=== PATIENT | male | born 1945 | race Caucasian/White ===

== ENCOUNTER 2020-01-18 06:38 | Day surgery (SDC) | payer OTHER, SELFPAY ==
[2019-12-17 14:53] VITALS: BMI 24.7
--- NOTE | 2020-01-17 13:03 | PCM.HP.BLA ---
History and Physical Date of Admission: 01/18/20 Raya Goff 06/27/1936 ? ? REFERRING PHYSICIAN: Shaan Arellano MD ? CHIEF COMPLAINT: Consult (Consult solonoscopy- anemia) ? HPI: The patient is a 83 year old female presents with complaint of abdominal pain, nausea, weight loss, and anemia. She is referred for consideration of endoscopy. She has had nausea and emesis. Denies hematemesis. Has decreased appetite and has lost about 12# over unknown period of time. This has been going on for about 8 months. Daughter notes that patient usually has good appetite, but lately does not for the past 8 months Notes occasional blood in stools. Has had a few episodes of abdominal pain - upper - that cuased her to double over due to pain She is presently on prevacid and has been for years. She thinks she had a colonoscopy about 5 years ago. She has a sister who had colon cancer in her 60s or 70s. The patient herself has a history of colon polyps in the remote past. She is presently on blood thinners for her cardiac stents. Her last hemoglobin was noted to be 9.7. She also had previous capsule endoscopy of small bowel 2014 - [place] ? ? PAST MEDICAL HISTORY ? Arrhythmia ? ? BENIGN NEOPLASM LG BOWEL 04/24/2007 ? Adenomatous polyp removed from Sigmoid in 1992 Colonoscopy 02-16-07 (sister with colon ca): left sided tics with no polyps or masses ? CHF (congestive heart failure) ([facility]) ? ? Chronic airway obstruction, not elsewhere classified ? ? CKD (chronic kidney disease) stage 3, GFR 30-59 ml/min ([facility]) 04/30/2017 ? Closed Colles' fracture of left radius 10/31/2016 ? Coronary artery disease ? ? Diverticulosis of colon (without mention of hemorrhage) ? ? DM Neuro Manif Type II 11/21/2009 ? Esophageal reflux 04/24/2007 ? Hallux valgus (acquired) 11/21/2009 ? MACULAR DEGENERATION NOS 07/28/2007 ? [facility] 06-24-07: L eye with MD s/p cataract extraction-stable [place] 08-14: L eye YAG capsulotomy after cataract extraction 07-27-07, 20/40 R, count fingers L ? Oropharyngeal dysphagia 05/17/2015 ? Honey thickened liquids. ? Osteopenia ? ? Osteopenia of multiple sites (Clinical osteoporosis) 11/12/2016 ? Other and unspecified hyperlipidemia ? ? Other psoriasis and similar disorders ? ? Psoriasis ? PAD (peripheral artery disease) (HCC) both lower extremities. 02/03/2018 ? Dr. Spencer Mccabe, Vascular Surgery ? Peripheral sensory neuropathy due to type 2 diabetes mellitus (HCC) 09/18/2015 ? Restless legs syndrome (RLS) 04/24/2007 ? Tobacco use disorder 03/30/2008 ? Quit tobacco about age 62: about a 30 pack year (started about 1970 and quit about 1999) UA negative for blood in 03-14, 11-12 ? Type II or unspecified type diabetes mellitus without mention of complication, not stated as uncontrolled ? ? Unspecified essential hypertension ? ? PAST SURGICAL HISTORY ? BX BREAST PERC VACUUM/ROTN ? 01/10/10 ? Left ? CC CORONARY STENT ? 04/10/2014 ? Stents x 2 ? CC CORONARY STENT ? 2003 ? Stent x 1 ? COLONOSCOP W/ OR W/O BRSH SPEC ? 05/10/2002 ? Colonoscopy ? COLONOSCOP W/ OR W/O BRSH SPEC ? 02/16/2007 ? Colonoscopy ? COLONOSCOP W/ OR W/O BRSH SPEC ? 07/30/2013 ? Colonoscopy ? COLONOSCOP W/ OR W/O BRSH SPEC ? 08/04/14 ? Colonoscopy ? COLONOSCOP W/ OR W/O BRSH SPEC ? 11/17/2014 ? Colonoscopy ? EGD W/O OR W/BRUSH/WASH ? 12/17/2000 ? EGD ? EGD W/O OR W/BRUSH/WASH ? 07[facility]01/14 [facility]ALLOPIAN [facility]UBE ? [facility] ? Tubal ligation ? REMOVAL GALLBLADDER ? 1983 ? Cholecystectomy ? REMOVAL OF TONSILS,<12 Y/O ? 194 ? Tonsillectomy ? REMV CATARACT EXTRACAP,INSERT LENS ? x 2 right and left ? Cataract Removal ? TOTAL ABDOM HYSTERECTOMY ? 1977 ? Hysterectomy, JUSTICE, BSO, appendectomy ? ? Current Outpatient Medications ? peg 3350-Electrolytes (GOLYTELY) 236-22.74-6.74 -5.86 gram suspension Take 4,000 mL by mouth one time only for 1 dose. Refer to printed prep instructions from your doctor. ? lisinopril (ZESTRIL, PRINIVIL) 10 mg tablet Take 1 tablet by mouth twice daily. (Patient taking differently: Take 10 mg by mouth once daily. ) ? guaiFENesin (MUCINEX) 600 mg 12 hr tablet Take 1 tablet by mouth twice daily. ? blood sugar diagnostic (DNsolution ULTRA TEST) test strip Test blood sugar twice daily Dx. Code: E11.40 ? atorvastatin (LIPITOR) 40 mg tablet Take 1 tablet by mouth once daily. ? cephALEXin (KEFLEX) 500 mg capsule Take 1 capsule by mouth twice daily. ? clopidogrel (PLAVIX) 75 mg tablet Take 1 tablet by mouth once daily. ? mometasone-formoterol (DULERA) 200-5 mcg/actuation inhaler Inhale 1 Puff as instructed twice daily. ? lansoprazole (PREVACID) 30 mg capsule Take 1 capsule by mouth once daily. ? amLODIPine (NORVASC) 5 mg tablet Take 1 tablet by mouth twice daily. ? albuterol HFA (VENTOLIN HFA) 90 mcg/actuation inhaler Inhale 2 Puffs as instructed four times daily as needed. ? ferrous sulfate 325 mg (65 mg iron) tablet Take 1 tablet by mouth daily with breakfast. ? tiotropium (SPIRIVA RESPIMAT) 2.5 mcg/actuation inhaler Inhale 2 Puffs as instructed once daily. ? sodium chloride (AYR, OCEAN) 0.65 % nasal spray Use 2 Sprays in the nose twice daily. ? metoprolol tartrate, short acting, (LOPRESSOR) 50 mg tablet Take 2 tablets by mouth twice daily. ? nitroglycerin sublingual (NITROSTAT) 0.4 mg SL tablet Dissolve 1 tablet under the tongue as needed. DISSOLVE ON TONGUE FOR CHEST PAIN. IF NO PAIN RELIEF, CALL 911 (Patient to call when needs) ? Compression Knee Highs KNEE HIGH COMPRESSION STOCKINGS 20-30 MM HG. DX: EDEMA ? Lancets lancets Test blood sugar(s) once times daily. Dx: E11.49 Insulin: No ? aspirin, enteric coated (ASPIRIN, ENTERIC COATED) 81 mg EC tablet Take 81 mg by mouth once daily. ? VIT C/OSWALDO AC/LUT/COPPER/ZNOX (PRESERVISION ORAL) Take by mouth twice daily. ? Vfaqoncxhrqek-Xhjrcrpr-Ffxerc (CENTRUM SILVER) ORAL Tab Take 1 tablet by mouth once daily. ? calcium carbonate/vitamin d3(CALCIUM 600 + D(3) 600 MG (1,500)-200 UNIT TAB) Take one(1) tablet twice daily. ? ? ALLERGIES: Aspirin; Iodine; Lyrica [Pregabalin]; Nabumetone; Proair Hfa [Albuterol Sulfate]; Tylenol [Acetaminophen] ? PERSONAL HISTORY: Social History ?Tobacco Use ? Smoking status: Former Smoker ? ? Packs/day: 1.30 ? ? Years: 45.00 ? ? Pack years: 58.50 ? ? Types: Cigarettes ? ? Start date: 07/07/1968 ? ? Last attempt to quit: 07/07/1999 ? ? Years since quittin.5 ? Smokeless tobacco: Never Used Substance Use Topics ? Alcohol use: No ? Drug use: No ? FAMILY HISTORY ? Emphysema Mother ? ? [place] ? Cancer Mother ? ? Lung ? Emphysema Father ? ? Alzheimer's Disease Sister ? ? Alzheimer's Disease Sister ? ? GI Sister ? ? pancreatitis ? Colon Cancer Sister ? ? Cancer Brother ? ? Lung in 2 brothers ? COPD Sister ? ? Emphysema ? Diabetes Son ? ? other (congestive heart failure) Son ? ? ? REVIEW OF SYSTEMS: General - complains of increased tiredness, denies fevers, has weight loss as above, has decreased appetite Cardiovascular - denies chest pain, has cardiac history with placement of stents Pulmonary - feels short of breath with exertion, denies coughing up blood Gastrointestinal - see HPI Neurological - denies seizures Genitourinary - denies burning with urination, denies blood in urine Hematological - has easy bruising, on antiplatelet medication Skin - bruises easily- has thin skin Musculoskeletal - has back pain Endocrine - has diabetes, feels cold all the time, no thyroid problems Psychological ? denies hallucinations ? PHYSICAL EXAMINATION: General: The patient is 83 year old female, well nourished, well hydrated in no acute distress. The patient is oriented to time, place, and person. VITALS: Pulse 75, temperature 37 ?C (98.6 ?F), temperature source Temporal Artery, weight 56.8 kg (125 lb 3.2 oz), SpO2 96 %. Body mass index is 25.29 kg/m?. Head ? Normocephalic. EOM intact with sclera clear and no icterus noted. Mouth with mucus membranes moist. Neck - supple with no jugular venous distention noted. Trachea is midline. Lungs ? clear to auscultation. Normal breath sounds. No rales/rhonchi/wheezing noted. No labored breathing noted, such as retractions. No cough heard. Heart ? normal heart sounds. No rubs/clicks/murmurs noted. Regular rate. Abdomen ? soft and benign. Normal bowel sounds. No abdominal bruits noted.. Extremities ? no calf tenderness noted. No pitting edema noted. Skin ? bruises noted, otherwise normal skin integrity. Neurological ? gait normal, no focal deficits noted. Psych ? calm and appropriate ? ? IMPRESSION: anemia, weight loss, abdominal pain, see above ? PLAN: I have discussed the above with the patient. She is here with her daughter. I have offered upper and lower endoscopy for evaluation of abdominal pain/anemia/weight loss, etc I have explained the procedures to the patient. I have counseled the patient as to the risks of the procedure, including but not limited to: infection, bleeding, perforation of the GI tract, injury to any intraabdominal organs such as the liver/spleen, inability to complete the procedure, complications of anesthesia, etc. ? the patient understands. The patient wishes to proceed. She states that she will not be able to drink the colon cleansing solution, I have told her that she can do a clear liquid diet over two days and divide the solution in half to take each of those days. She has CKD and a magcitrate prep that she had in the past may cause MINO. I have also counseled patient that given the present COVID crisis, she would be at risk for COVID and potential for complications given this procedure, though the risks are low. She understands and wishes to proceed. I have answered all questions to the patient?s satisfaction and the patient has no further questions. . Diagnoses: (D64.9) Anemia, unspecified type (primary encounter diagnosis) (R10.11, R10.12) Bilateral upper abdominal pain (K92.1) Hematochezia Return to Clinic: The patient is instructed to follow-up with me after the procedure. ? Danni Rocha MD
[2020-01-18] VITALS (7 sets, daily range): BP systolic 96–140; BP diastolic 62–77; PULSE 56–63; RESP 14–16; TEMP 36.2–36.6; O2SAT 97–100; BMI 23.5
--- NOTE | 2020-01-18 07:09 | PCM.HP.STD ---
Problem List (1) Personal history of colonic polyps Status: Acute History of Present Illness Date of Admission: 01/18/20 The patient is a 74 year old M who presents for an open access to pursue a colonoscopy as he has a personal history of colon polyps. His most recent colonoscopy was November 2014. Hyperplastic polyp was removed at that time. But he has had history of polyps prior to that as well. Denies abdominal pain. No bright red blood per rectum or melena. He has had an intentional 15 pound weight loss since he was diagnosed as being prediabetic. He otherwise enjoys a good quality of life Past Medical History Medical History: Medical History (Last Updated 12/17/19 @ 14:49 by Cam Kelley) Arthritis M19.90 Back problem M53.9 GERD (gastroesophageal reflux disease) K21.9 High cholesterol E78.00 High triglycerides E78.1 History of amputation of toe Z89.429 History of gout Z87.39 Joint pain M25.50 Joint swelling M25.40 Neuropathy G62.9 Tinnitus H93.19 cataracts Allergies No Known Allergies Allergy (Unverified 01/18/20 06:54) Home Medications: Ambulatory Orders Medication Instructions Recorded omeprazole magnesium 10 mg oral 20 mg PO DAILY 12/17/19 suspension,delayed release pravastatin 20 mg tablet 20 mg PO DAILY #90 tab 12/17/19 vit C,E,zinc,copper-irrhg6m 250 1 cap PO DAILY 12/17/19 mg-lutein 5 mg-zeaxanthin 1 mg capsule Gabapentin 600 mg PO 4X/DAY 01/05/20 [place]-3 Fatty Acids/Fish Oil [Fish 1 ea PO BID 01/05/20 Oil 1,000 mg Capsule] Ubidecarenone [Coq-10] 100 mg PO DAILY 01/05/20 Surgical History: Surgical History (Last Updated 12/17/19 @ 14:49 by Cam Kelley) History of back surgery Z98.890 History of hernia surgery Z98.890, Z87.19 Smoking Status: Never smoker Tobacco Use: Non-smoker Review of Systems Constitutional: Denies: Anorexia Cardiovascular: Denies: Chest Pain Respiratory: Denies: Cough, Shortness of Breath Gastrointestinal: Denies: Abdominal Pain, Melena Endocrine: Reports: Change in Body Habitus, - - Intentional 15 pound weight loss VTE Information - Inpt Only VTE Present on Admission: No Patient Problems: Active and Suspected Problems (Last Updated 12/17/19 @ 14:49 by Cam Kelley) Personal history of colonic polyps (Acute) - Physical Exam Vitals/I&O's: Vital Signs Temp Pulse Resp BP Pulse Ox 97.1 F L 63 14 140/77 H 100 01/18/20 06:55 01/18/20 06:55 01/18/20 06:55 01/18/20 06:55 01/18/20 06:55 Oxygen Delivery Method Room Air Weight: 166 lb 3.657 oz Body Mass Index (BMI) 23.5 General: Alert, Oriented x3, Cooperative, No apparent distress HEENT: Atraumatic Oral: Moist Mucosa Lungs: Clear to auscultation, Normal air movement Cardiovascular: Regular rate, Regular Rhythm Abdomen: Bowel Sounds Present, Soft, Non Tender Extremities: No Calf Tenderness Neurological: - - Cognition intact Psych/Mental Status: Normal Affect Assessment/Plan All Active Problems (Last Updated 12/17/19 @ 14:49 by Cam Kelley) Personal history of colonic polyps (Acute) 74-year-old gentleman with a personal history of colon polyps. He presents via open access. I propose for him a colonoscopy with possible biopsy or polypectomy is indicated. He has had an opportunity to ask and have questions answered. We will proceed as noted. Iftikhar Sanabria M.D., F.A.C.S.
[2020-01-18] MEDS: Lactated Ringers 1,000 ML 100 ML IV (07:17)
--- NOTE | 2020-01-18 07:42 | OP.CCLET_ITS ---
01/18/2020 Allyson Ambriz [facility] [address] [place] [address] Re : Colonoscopy procedure for Petey Sanford Dear Dr. Ambriz This procedure was performed on Saturday, January 18, 2020. My impressions and recommendations are as follows: Impressions : - Non-thrombosed external hemorrhoids, non-thrombosed internal hemorrhoids, internal hemorrhoids (Grade I) and enlarged prostate found on digital rectal exam. - Diverticulosis in the entire examined colon. - The examination was otherwise normal. - No specimens collected. Recommendations : - Discharge patient to home. - Resume previous diet. - Continue present medications. - Repeat colonoscopy is not recommended due to current age (66 years or older) for screening purposes. My findings are described in the full procedure note, which is enclosed. If I can be of further assistance, please feel free to contact me at Doctor phone number(s): Work: . Sincerely, Iftikhar Sanabria MD 01/18/2020 7:42:31 AM This report has been signed electronically.
--- NOTE | 2020-01-18 07:42 | OP.COLON_ITS ---
Patient Name: Petey Sanford Procedure Date: 01/18/2020 7:10 AM Date of : 1945 Age: 74 Procedure: Colonoscopy Indications: High risk colon cancer surveillance: Personal history of colonic polyps Providers: Iftikhar Sanabria MD Referring MD: Allyson Ambriz Medicines: See the Anesthesia note for documentation of the administered medications Patient Profile: Last Colonoscopy: November 2014. Complications: No immediate complications. Procedure: Pre-Anesthesia Assessment: - Prior to the procedure, a History and Physical was performed, and patient medications and allergies were reviewed. The patient's tolerance of previous anesthesia was also reviewed. The risks and benefits of the procedure and the sedation options and risks were discussed with the patient. All questions were answered, and informed consent was obtained. Prior Anticoagulants: The patient has taken no previous anticoagulant or antiplatelet agents. ASA Grade Assessment: II - A patient with mild systemic disease. After reviewing the risks and benefits, the patient was deemed in satisfactory condition to undergo the procedure. After I obtained informed consent, the scope was passed under direct vision. Throughout the procedure, the patient's blood pressure, pulse, and oxygen saturations were monitored continuously. The Colonoscope was introduced through the anus and advanced to the cecum, identified by appendiceal orifice and ileocecal valve. The colonoscopy was performed without difficulty. The patient tolerated the procedure well. The quality of the bowel preparation was good. The ileocecal valve and the appendiceal orifice were photographed. Scope In: 7:24:28 AM Scope Withdrawal Time 0 hours 7 minutes 1 second Scope Out: 7:37:36 AM Total Procedure Duration Time 0 hours 13 minutes 8 seconds Findings: The digital rectal exam findings include non-thrombosed external hemorrhoids, non-thrombosed internal hemorrhoids, internal hemorrhoids (Grade I) and enlarged prostate. Pertinent negatives include normal sphincter tone. Multiple diverticula were found in the entire colon. The exam was otherwise without abnormality. Impression: - Non-thrombosed external hemorrhoids, non-thrombosed internal hemorrhoids, internal hemorrhoids (Grade I) and enlarged prostate found on digital rectal exam. - Diverticulosis in the entire examined colon. - The examination was otherwise normal. - No specimens collected. Recommendation: - Discharge patient to home. - Resume previous diet. - Continue present medications. - Repeat colonoscopy is not recommended due to current age (66 years or older) for screening purposes. Procedure Code(s): --- Professional --- 78250, Colonoscopy, flexible; diagnostic, including collection of specimen(s) by brushing or washing, when performed (separate procedure) Diagnosis Code(s): --- Professional --- Z86.010, Personal history of colonic polyps K64.0, First degree hemorrhoids K64.4, Residual hemorrhoidal skin tags N40.0, Benign prostatic hyperplasia without lower urinary tract symptoms K57.30, Diverticulosis of large intestine without perforation or abscess without bleeding CPT copyright 2017 [employer]. All rights reserved. The codes documented in this report are preliminary and upon entry operator review may be revised to meet current compliance requirements. Iftikhar Sanabria MD 01/18/2020 7:42:31 AM This report has been signed electronically. Number of Addenda: 0 Note Initiated On: 01/18/2020 7:10 AM
== END 2020-01-18 08:22 | disposition home or self-care (01) ==
LOC: EN 06:39 → AC 06:41
PROVIDERS: Anesthesiology; PCP Internal Medicine; Referring Provider Internal Medicine; Visit Provider Surgery
PROC: 0DJD8ZZ Inspection of Lower Intestinal Tract, Via Natural or Artificial Opening Endoscopic (ICD-10-PCS; CPT 45378; principal; 2020-01-18 07:40)
DX: Z12.11 Encounter for screening for malignant neoplasm of colon (principal); K57.30 Diverticulosis of large intestine without perforation or abscess without bleeding; K64.0 First degree hemorrhoids; N40.0 Benign prostatic hyperplasia without lower urinary tract symptoms; Z87.19 Personal history of other diseases of the digestive system; M19.90 Unspecified osteoarthritis, unspecified site; K21.9 Gastro-esophageal reflux disease without esophagitis; E78.00 Pure hypercholesterolemia, unspecified; Z11.59 Encounter for screening for other viral diseases; Z79.899 Other long term (current) drug therapy
CPT/HCPCS: 45378; 87635; G2023; J7120; J2405; U0003

== ENCOUNTER 2021-09-04 09:00 | Outpatient (CLI) | payer OTHER, SELFPAY ==
[2021-09-04 12:24] LABS: Absolute Neutrophil Count 2.4 X10^3/uL (2.0-7.7); Basophil# 0.04 X10^3/uL; Basophil% 0.9 % (0-1); Eosinophil# 0.17 X10^3/uL; Eosinophils% 3.7 % (0-5); Hematocrit 46.9 % (40-54); Hemoglobin 16.4 g/dL (13.0-16.5); Lymphocyte % 32.4 % (19-41); Mean Corpuscular Hgb 30.7 pg (27.0-32.0); Mean Corpuscular Volume 87.8 fL (80-94); Mean Platelet Vol. 11.9 fl (6.2-12.0); Monocyte# 0.47 X10^3/uL; Monocyte% 10.2 % (0-10); NRBC Flagged by Analyzer 0 % (0-5); Neutrophil # 2.44 X10^3/uL (2.7-7.7); Neutrophil % 52.6 % (47-70); Platelet Count 165 K/mm3 (150-450); RBC Distribution Width CV 13.1 % (11.6-14.6); RBC Distribution Width SD 41.6 fl (35.1-43.9); Red Blood Count 5.34 M/mm3 (4.6-6.2); White Blood Count 4.6 K/mm3 (4.4-11.0)
[2021-09-04 12:49] LABS: Vitamin D,25 Hydroxy 88.9 ng/mL
[2021-09-04 13:16] LABS: ALB/GLOB Ratio 0.9 RATIO (0.9-2.4); AST(SGOT) 23 U/L (15-37); Alanine Aminotransfer ALT/SGPT 31 U/L (16-61); Albumin, Serum 3.7 g/dL (3.2-5.0); Alkaline Phosphatase 100 U/L (45-117); Anion Gap 5 (5-15); BUN 18 mg/dL (7-18); BUN/Creat Ratio 17.6 RATIO (10-20); Calcium,Total 8.8 mg/dL (8.5-10.1); Chloride 104 mmol/L (98-107); Cholesterol 155 mg/dL (200); Creatinine, Serum 1.02 mg/dL (0.70-1.30); EST Glomerular Filtration Rate 75 mL/min (>60); Est Glom Filt Rate - Afr Amer 91 mL/min (>60); Globulin 3.9 g/dL (2.2-4.2); Glucose 125 mg/dL (74-106); High Density Lipoprotein 45 mg/dL; PSA,Total - Annual Screen 3.59 ng/mL (0.00-4.00); Potassium 4.6 mmol/L (3.5-5.1); Protein, Total 7.6 g/dL (6.4-8.2); Sodium Level 139 mmol/L (136-145); Triglycerides 135 mg/dL; Very Low Density Lipoprotein 27 mg/dL (5-40)
== END 2021-09-04 23:59 | disposition home or self-care (01) ==
LOC: BIMLAB 09:01
PROVIDERS: PCP Internal Medicine; Referring Provider Internal Medicine; Visit Provider Internal Medicine
DX: M19.90 Unspecified osteoarthritis, unspecified site (principal); K21.9 Gastro-esophageal reflux disease without esophagitis; G62.9 Polyneuropathy, unspecified; M54.9 Dorsalgia, unspecified; G89.29 Other chronic pain; Z12.5 Encounter for screening for malignant neoplasm of prostate
CPT/HCPCS: 36415; 80053; 80061; 82306; 84153; 85025; G0103

== ENCOUNTER → 2022-05-01 | Outpatient (CLI) | payer MEDICARE, SELFPAY ==
--- NOTE | 2022-05-01 14:09 | RAD_ITS ---
"EXAM: XR BILATERAL HIPS WITH PELVIS WHEN PERFORMED, 4 OR MORE VIEWS CLINICAL INDICATION: Osmani hip pain, left acute on chronic TECHNIQUE: Four or more views of the bilateral hips with pelvis when performed. This report was created using Traveler | VIP report HomeLight technology. COMPARISON: None. FINDINGS: BONES/JOINTS: Moderate joint space narrowing and marginal osteophytes left hip. Prominent bump along the superolateral aspect of the left femoral head neck junction. Mild joint space narrowing white hip with mild bump along the superolateral aspect of the right femoral head neck junction. Postoperative changes in the lumbosacral spine with laminectomy and posterior archana and pedicle screw stabilization. No displaced fracture. No destructive or sclerotic lesions. Note that overlapping bowel shadows may however obscure fine detail. Sacroiliac joint is unremarkable. No widening of the pubic symphysis. SOFT TISSUES: Unremarkable. No soft tissue swelling or gas. RAD/Hips B/L min 2 views w/ Pelvis IMPRESSION: 1. Moderate degenerative changes left hip associated with cam type femoral acetabular impingement. 2. Mild degenerative changes right hip associated with cam type femoral acetabular impingement. Electronically Signed: Rogelio Patricio MD at 6:11 EDT , "
--- NOTE | 2022-05-01 14:09 | RAD_ITS ---
EXAM: XR LEFT SHOULDER COMPLETE, 2 OR MORE VIEWS CLINICAL INDICATION: Left shoulder pain, arthritis shoulder TECHNIQUE: Two or more views of the left shoulder. This report was created using Toppr report generation technology. COMPARISON: None. FINDINGS: BONES/JOINTS: Unremarkable. No acute fracture. No subluxation. Normal alignment. Preservation of the joint space. No sclerotic or destructive changes observed. SOFT TISSUES: Unremarkable. No soft tissue swelling or gas. No radiopaque foreign body. RAD/Shoulder min 2 Views IMPRESSION: Negative left shoulder x-rays. Electronically Signed: Rogelio Patricio MD at 6:09 EDT ,
== END | disposition home or self-care (01) ==
PROVIDERS: PCP Internal Medicine; Referring Provider Internal Medicine; Visit Provider Internal Medicine
DX: M25.551 Pain in right hip (principal); M25.552 Pain in left hip; M25.512 Pain in left shoulder
CPT/HCPCS: 73030; 73521

== ENCOUNTER → 2022-06-13 | Outpatient (CLI) | payer MEDICARE, SELFPAY ==
[2022-06-13 12:08] LABS: Absolute Lymphocyte Count 1.68 X10^3/uL (0.83-4.51); Absolute Neutrophil Count 3.7 X10^3/uL (2.0-7.7); Basophil# 0.05 X10^3/uL; Basophil% 0.8 % (0-1); Eosinophil# 0.15 X10^3/uL; Eosinophils% 2.4 % (0-5); Hematocrit 46.9 % (40-54); Hemoglobin 15.9 g/dL (13.0-16.5); Lymphocyte # 1.68 X10^3/ul (0.83-4.51); Lymphocyte % 26.5 % (19-41); Mean Corp Hgb Conc 33.9 g/dL (32-36); Mean Corpuscular Hgb 29.7 pg (27.0-32.0); Mean Corpuscular Volume 87.5 fL (80-94); Mean Platelet Vol. 11.5 fl (6.2-12.0); Monocyte# 0.77 X10^3/uL; Monocyte% 12.2 % (0-10); NRBC Flagged by Analyzer 0 % (0-5); Neutrophil # 3.66 X10^3/uL (2.7-7.7); Neutrophil % 57.8 % (47-70); Platelet Count 179 K/mm3 (150-450); RBC Distribution Width CV 12.9 % (11.6-14.6); RBC Distribution Width SD 41.3 fl (35.1-43.9); Red Blood Count 5.36 M/mm3 (4.6-6.2); White Blood Count 6.3 K/mm3 (4.4-11.0)
[2022-06-13 12:27] LABS: Vitamin D,25 Hydroxy 82.3 ng/mL
[2022-06-13 12:40] LABS: ALB/GLOB Ratio 1.1 RATIO (0.9-2.4); AST(SGOT) 22 U/L (15-37); Alanine Aminotransfer ALT/SGPT 33 U/L (16-61); Albumin, Serum 3.7 g/dL (3.2-5.0); Alkaline Phosphatase 104 U/L (45-117); Anion Gap 6 (5-15); BUN 18 mg/dL (7-18); BUN/Creat Ratio 17.1 RATIO (10-20); Calcium,Total 9.3 mg/dL (8.5-10.1); Chloride 102 mmol/L (98-107); Cholesterol 184 mg/dL (200); Creatinine, Serum 1.05 mg/dL (0.70-1.30); EST Glomerular Filtration Rate 73 mL/min (>60); Est Glom Filt Rate - Afr Amer 88 mL/min (>60); Globulin 3.5 g/dL (2.2-4.2); Glucose 142 mg/dL (74-106); High Density Lipoprotein 47 mg/dL; Potassium 4.6 mmol/L (3.5-5.1); Protein, Total 7.2 g/dL (6.4-8.2); Sodium Level 138 mmol/L (136-145); Thyroid Stim Hormone (TSH) 2.24 uIU/mL (0.358-3.74); Triglycerides 207 mg/dL; Very Low Density Lipoprotein 41 mg/dL (5-40)
== END | disposition home or self-care (01) ==
LOC: BIMLAB 10:35
PROVIDERS: PCP Internal Medicine; Referring Provider Internal Medicine; Visit Provider Internal Medicine
DX: K21.9 Gastro-esophageal reflux disease without esophagitis (principal); M54.50 Low back pain, unspecified; G89.29 Other chronic pain; M19.90 Unspecified osteoarthritis, unspecified site; E78.00 Pure hypercholesterolemia, unspecified; M25.50 Pain in unspecified joint; E55.9 Vitamin D deficiency, unspecified
CPT/HCPCS: 36415; 80053; 80061; 82306; 84443; 85025

== ENCOUNTER → 2022-06-19 | Outpatient (CLI) | payer MEDICARE, SELFPAY ==
--- NOTE | 2022-06-19 15:02 | CT_ITS ---
EXAM: CT LEFT LOWER EXTREMITY WITHOUT INTRAVENOUS CONTRAST CLINICAL INDICATION: templating for left MANFRED TECHNIQUE: Helically acquired images were obtained of the left lower extremity without intravenous contrast. 2-D reformats were performed by the technologist. CTDIvol = ( 13.06 ) mGy, DLP = ( 832.54 ) mGycm This CT exam was performed using one or more of the following dose reduction techniques: automated exposure control, adjustment of the mA and/or kV according to patient size, and/or use of iterative reconstruction technique. This report was created using Rypos report Notifo technology. COMPARISON: None. FINDINGS: BONES/JOINTS: Moderate osteoarthrosis involving the right hip joint with severe osteoarthrosis of the left hip joint. No acute or healing fracture or malalignment. Posterior decompression of the lumbosacral spine with posterior osteometallic fusion. No hardware complications. No sclerotic or destructive changes. SOFT TISSUES: Unremarkable. No soft tissue swelling or gas. No radiopaque foreign body. OTHER FINDINGS: Colonic diverticulosis without diverticulitis. CT/Extremity Lower without Contra IMPRESSION: 1. Study performed for preoperative planning purposes. 2. End-stage osteoarthrosis of the left hip joint. Electronically Signed: Ryder Mart MD at 3:50 EST ,
== END | disposition home or self-care (01) ==
LOC: CT 15:00
PROVIDERS: PCP Internal Medicine; Referring Provider Orthopaedic Surgery; Visit Provider Orthopaedic Surgery
DX: M16.12 Unilateral primary osteoarthritis, left hip (principal)
CPT/HCPCS: 73700

== ENCOUNTER → 2022-06-25 | Outpatient (CLI) | payer MEDICARE, SELFPAY ==
[2022-06-26 12:05] LABS: Prothrombin Time (Protime)PT. 12.7 SECONDS (11.7-14.9)
[2022-06-26 12:06] LABS: Partial Thromboplast Time 29.2 Seconds (24.1-36.2)
[2022-06-26 12:14] LABS: Magnesium 2.2 mg/dL (1.6-2.6)
[2022-06-26 14:49] LABS: Hemoglobin A1c 6.6 % (3.8-5.6)
[2022-06-27 16:31] LABS: Fructosamine 333 umol/L (0-285)
== END | disposition home or self-care (01) ==
LOC: PAT 07-16 16:49
PROVIDERS: Anesthesiology; PCP Internal Medicine; Referring Provider Orthopaedic Surgery; Visit Provider Orthopaedic Surgery
DX: Z01.818 Encounter for other preprocedural examination (principal)
CPT/HCPCS: 36415; 82985; 83036; 83735; 85610; 85730; 86850; 86900; 86901; 87081

== ENCOUNTER → 2022-07-25 | Outpatient (CLI) | payer MEDICARE, SELFPAY ==
[2022-07-25 12:40] LABS: Anion Gap 6 (5-15); BUN 19 mg/dL (7-18); BUN/Creat Ratio 19.7 RATIO (10-20); Calcium,Total 9.4 mg/dL (8.5-10.1); Chloride 104 mmol/L (98-107); Creatinine, Serum 0.96 mg/dL (0.70-1.30); EST Glomerular Filtration Rate 80 mL/min (>60); Est Glom Filt Rate - Afr Amer 97 mL/min (>60); Glucose 131 mg/dL (74-106); Potassium 4.1 mmol/L (3.5-5.1); Sodium Level 138 mmol/L (136-145)
[2022-07-26 13:06] LABS: Fructosamine 277 umol/L (0-285)
== END | disposition home or self-care (01) ==
LOC: BIMLAB 09:57
PROVIDERS: PCP Internal Medicine; Visit Provider Internal Medicine
DX: R73.9 Hyperglycemia, unspecified (principal)
CPT/HCPCS: 36415; 80048; 82985; 83036

== ENCOUNTER 2022-08-13 14:05 | Observation (INO) | payer MEDICARE, SELFPAY ==
[2022-08-05 10:35] LABS: Hemoglobin A1c 6.1 % (3.8-5.6)
[2022-08-05 10:37] LABS: Prothrombin Time (Protime)PT. 12.5 SECONDS (11.7-14.9)
[2022-08-05 10:38] LABS: Partial Thromboplast Time 32.2 Seconds (24.1-36.2)
[2022-08-05 12:49] LABS: Magnesium 2.1 mg/dL (1.6-2.6)
[2022-08-06 20:37] LABS: Fructosamine 288 umol/L (0-285)
[2022-08-13] VITALS (16 sets, daily range): BP systolic 110–140; BP diastolic 52–78; PULSE 46–65; RESP 15–47; TEMP 35.3–36.6; O2SAT 93–100; BMI 24.5
--- NOTE | 2022-08-13 | HIP_PTH ---
PATIENT: FAUSTINO WEST LOC: MS3 U#:[id number] AGE/SX: 76/M ROOM: [facility] RE08/13/[address]: Dr. Anthony Hoover DO : 1945 BED: 1 DIS: 08/15/2022 SPEC #: [id number] RECD: 08/13/22 14:00 STATUS: CHET RESergio #: [id number] SENIA: 08/13/22 00:[address]: Anthony Hoover DEPT: SURGICAL PATHOLOGY RECD BY: Rodolfo Delgado ENTERED: 08/14/22 08:55 SP TYPE: TOTAL HIP OTHR DR: MD Dr. Angie Rich MD Tissues: Hip, NOS Procedures: Decalcification bone/plaque Surgery Specimen Level IV Comments: @ Specimen number changed from [id number] to [id number] @ on 08/14/22 at 0857 by MAINOR. HEADER OPERATION: ERAS, total hip replacement robotic arm assist PRE-OP DIAGNOSIS: Osteoarthritis of left hip TISSUE SUBMITTED: Bone and soft tissue from left hip MICROSCOPIC DIAGNOSIS Bone and tissue of left hip, total hip resection: Severe degenerative joint disease. AM:chu 08/19/2022 MICROSCOPIC DESCRIPTION Slides are reviewed. GROSS DESCRIPTION Received is one container labeled with the patient's name and designated bone and soft tissue hip, left. The specimen consists of a sahu femoral head with portion of femoral neck. The femoral head measures 5.5 x 5.5 x 5 cm and the femoral neck measures 1.5 cm in length. The articular surface displays prominent osteophyte formation, eburnation and bone erosion. Also present in the specimen container are multiple irregular fragments of bone reamings and pink-yellow soft tissue measuring in aggregate 8 x 9 x 3 cm. Putty Tinter Maker sections are submitted in two cassettes as follows: 1 - soft tissue, 2 - bone after decalcification. / SJ:chu 08/14/2022 TC:5 CPT: 92082, 54466
[2022-08-13] MEDS: Acetaminophen 500 MG Tablet 1000 MG PO ×2 (10:05→21:46)
[2022-08-13] MEDS: Celecoxib 200 MG Capsule 400 MG PO (10:06)
[2022-08-13] MEDS: Scopolamine 1mg/72hr Patch 1 PATCH TD (10:06)
[2022-08-13] MEDS: Magnesium 1 GM over 15 mins IV (10:34)
--- NOTE | 2022-08-13 10:38 | PCM.HP.BLA ---
History and Physical Date of Admission: 08/13/22 [facility] [id number] [place] [address] OFFICE VISIT Date of Service:? 08/05/22 MR#: [id number] Acct: [id number] Name:FAUSTINO ROMEO Rep #: [id number] : 1945 ? ? Provider: Dr. Anthony Hoover, DO Age/Sex:? 76/M ? ? Location: [facility] Status: Signed Intake Vital Signs ? 05/06/2210:18 Height 5 ft 10 in Intake Visit Reasons:?left hip Chief Complaint: left hip pain User Support Analyst Supervisor Required: No Accompanied by: Is patient in pain?: Yes (left hip and lower back) Pain scale (1-10): 4 Allergies No Known Allergies Allergy (Verified 08/05/22 08:56) Medications omeprazole magnesium 10 mg oral suspension,delayed release (Prilosec) 20 mg PO DAILY 12/17/19 [History Confirmed 08/05/22] vit C,E,zinc,copper-yisxy9g 250 mg-lutein 5 mg-zeaxanthin 1 mg capsule (Ocuvite Adult 50 Plus) 1 cap PO DAILY 12/17/19 [History Confirmed 08/05/22] coenzyme Q10 100 mg capsule 100 mg PO DAILY 01/05/20 [History Confirmed 08/05/22] cholecalciferol (vitamin D3) 125 mcg (5,000 unit) capsule 125 mcg PO DAILY 09/11/21 [History Confirmed 08/05/22] zinc gluconate 30 mg tablet 30 mg PO DAILY 09/11/21 [History Confirmed 08/05/22] pravastatin 20 mg tablet 20 mg PO DAILY #90 tabs 09/18/21 [Rx Confirmed 08/05/22] gabapentin 600 mg tablet 600 mg PO TID 05/01/22 [History Confirmed 08/05/22] metformin 500 mg tablet 500 mg PO BID #60 tabs 07/03/22 [Rx Confirmed 08/05/22] PFSH Medical History? Arthritis Back pain Back problem Cancer cataracts Diabetes Gastric reflux High cholesterol High triglycerides History of amputation of toe History of gout History of pain when walking History of ulceration Joint pain Joint swelling Leg cramps Neuropathy Non-smoker Restless legs Syncope Tinnitus Wears glasses Wears hearing aid Surgical History? History of back surgery History of hernia surgery Hx of colonoscopy Hx of esophagogastroduodenoscopy skin cancer removal Family History? Other Cancer Diabetes Heart disease Social History? Smoking Status:? Never smoker alcohol intake:? never HPI left hip Details: Parts of this documentation were recorded by a scribe, this documentation accurately reflects the service provided and the decisions made by me, Dr. Anthony Hoover, DO 08/05/22 0752. FAUSTINO SANFORD is a 76 year old M here today for? left hip pain. symptoms unchanged. ? surgery rescheduled for left hip arthroplasty scheduled in one week 08/13/2022 as he has had dietary adjustments and has not been able to get his fructosamine into the appropriate range. Ortho Exam General General: Yes no acute distress Neurologic: Yes alert and Yes oriented x3 Psychologic: Yes reasonable and appropriate Left Hip Skin/Wound: No Ecchymosis, No soft tissue swelling and No Erythema Hip: Absent eccymosis, soft tissue swelling, erythema or tender to palpate - internal rotation @90 degree flexion: 10 degrees external rotation @90 degree extension: 30 degrees HIP: Upon inspection of the left hip there is no evidence erythema, ecchymosis, open wounds or swelling.? No signs of infection.? Limited active range of motion of the hip as noted above.? Hip active range of motion does produce the groin pain.? Soft compartments. Supplemental Info 05/01/2022 x-ray left hip: Moderate to advanced left hip arthrosis there is instrumentation noted in the lower lumbar spine. Coding Level of Care Code Off vis,est,level 3 Diagnoses Osteoarthritis of left hip? M16.12 Assessment and Plan Assessment and Plan (1) Osteoarthritis of left hip: ?Status:?Acute Plan Mr. Sanford has lowered his fructosamine with dietary adjustments and he wishes to proceed with surgery for left MANFRED.? We did have a cancellation and were able to get him on sooner tentative surgery date August 13, 2021.? risks, benefits and alternatives of surgery reviewed including but not limited to bleeding, infection, nerve, foot drop, artery and/or tissue damage, fracture, VTE, leg length discrepancy, dislocation, need for hip precautions, continued pain and expected post-operative course.?Reviewed the pre-operative plans with the patient. Risks and benefits of the procedure were fully explained, including but not limited to infection, neurovascular injury, continued pain, arthritis, stiffness, need for further surgery, re-injury, DVT, PE, general risks of anesthesia, and loss of limb or life. The patient understands all the risks and does wish to proceed with written consent for left total hip arthroplasty. He will need to be able to get up 3 stairs at home prior to returning home. Edcuated that we will keep the patient overnight for observation and if all is well go home the next day. No NSAIDs for 7 days prior to surgery.? Continue with dietary diabetic plan. Follow up 2 weeks post op or sooner if pain, swelling, numbness or associated symptoms, or concerns develop.? All questions answered. Patient in agreement of plan. I will forward a copy to Dr. Kang 08/05/22 0923 <Electronically signed by Anthony Hoover DO> Date Anthony Hoover DO Cosigner Signature: Date (if applicable) ? CC:? Dr. Allyson Ambriz MD ~ I have examined the patient and the H&P has been reviewed. There are no clinical changes since date of exam.
[2022-08-13 11:10] LABS: Bedside Glucose 122 mg/dL (74-106)
[2022-08-13] MEDS: Cefazolin 2 GM in 0.9% Normal Saline 100 ML IV (11:17)
[2022-08-13] MEDS: Lactated Ringers 1,000 ML 125 ML IV (12:00)
--- NOTE | 2022-08-13 14:06 | PCM.OP.BLANK ---
Operative Report Date of Procedure: 08/13/22 Preoperative diagnosis: Left hip DJD Postoperative diagnosis: Same Procedure: CT-guided Makoplasty assisted left total hip arthroplasty Implants: [place] Accolade II stem size 4, 132 degree neck angle +5 neck length 56 mm Trident II acetabular shell with 40 mm cancellous screw 36mm ceramic head, 10 degree Trident X3 polyethylene insert. Anesthesia: Spinal EBL: 175 cc Complications: None Condition: Stable to PACU Indication for procedure: This is a 76-year-old male who has had long-standing arthrosis of the hip who has failed conservative treatment and wished to undergo total hip arthroplasty. We did discuss operative versus nonoperative intervention including risks of bleeding, infection , nerve artery tissue damage, need for further surgery, fracture, leg length discrepancy dislocation blood clot and need for postoperative physical therapy and postoperative expectations. An informed consent was signed. Procedure: Patient was met in the preoperative holding area once again the operative extremity was identified by both patient and physician and was marked. Patient was met by anesthesia . Anesthesia was started. patient was then positioned in the lateral decubitus position on a well-padded pegboard with an axillary roll. All bony prominences were checked and padded. The patient was prepped and draped in the usual sterile fashion. A timeout was called to ensure the proper patient procedure and extremity were being contemplated. Anatomic landmarks were palpated and marked for a standard posterior lateral approach. Prior to this the ASIS was palpated and 3 fingerbreadths proximal to this 3 pins were placed at a 45 degree angle into the iliac crest with good purchase, stab incisions were made with a 15 blade into the skin prior to placement. The Makoplasty array was then secured. A 10 blade scalpel was used to make a posterior incision through the skin and subcutaneous tissue. retractors were used and electrocautery was used to maintain meticulous hemostasis and dissect full-thickness flaps until the gluteal fascia was reached. The gluteal fascia was incised in line with the gluteal fibers. The bursal tissue was then freed from the underside and a Charnley retractor was placed. The femoral trochanteric checkpoint was placed and leg length was assessed using the trochanteric checkpoint and an EKG lead that was placed on the knee prior to prepping the leg .the fat pad was then elevated off of the external rotators with electrocautery and the external rotators were dissected off of the greater trochanter including the piriformis and were tagged with #1 Ethibond for later repair. The joint capsule opened with posterior trapdoor technique. The hip was surgically dislocated. The measurement on the preoperative CT from the top of the lesser trochanter to the femoral neck cut was marked Hohmann was placed around the lesser trochanter. A neck cutting guide was used to beto the neck with a Bovie and an oscillating saw was used complete the femoral neck cut. The femoral head was then removed and sized. We then turned our attention to the acetabulum. A Bovie was used to make a perforation in the anterior joint capsule and a Jean retractor was placed this was repeated in the 6 o'clock position and a wide bertha was placed there. With a long handled knife the labral and pulvinar tissue were removed. We then registered the acetabulum with the pointing array and confirmed our landmarks. Once the socket was thoroughly prepared and labral tissue and pulvinar was removed we single reamed with the robotic arm. We then used the robotic arm to position the acetabular implant and impacted it into place under robotic guidance. We then proceeded to place a posterior superior screw by drilling first measuring and inserting the screw. We then inserted a trial liner. And turned our attention back to the femur at this point a femoral elevator was used. As well as a pointed wide Hohmann around the lesser trochanter and a Hohmann to help retract the gluteus medius. A box chisel was used to remove excess lateral neck followed by a canal finder and a lateralizing reamer. This was followed by sequential broaches. Attention was made of the version within the canal based on preoperative templating. Once the final broach was seated we then trialed reduced the hip it was determined that a 132 degree neck angle with a +5 neck length was the appropriate size. We then checked stability with shuck testing as well as flexion and internal rotation. then proceeded with hip extension and checked leg lengths at the knees and heels as well as with the trochanteric checkpoint and knee EKG lead. At this point trials were removed. A liner was inserted to the cup. The femoral stem was inserted. We re-trialed and then proceeded to impact the femoral head onto the Alan taper. We then surgically reduce the hip check stability again and leg lengths and were satisfied. Betadine rinse was allowed to sit for 5 minutes while everyone changed their gloves. Thorough irrigation was performed. Followed by closure of the external rotators with #2 FiberWire followed by closure of gluteal fascia with #1 Ethibond. 0 Vicryl fat stitches and 2-0 Vicryl subcutaneous stitches and robert in the skin. [place] were placed in the skin pin sites over the iliac crest and dressed with a Mepilex dressing. The main incision was dressed with a Mepilex ag dressing and an abduction pillow was placed. Patient tolerated the procedure well there was no intraoperative complications all counts were correct and the patient was brought back to the PACU in stable condition
--- NOTE | 2022-08-13 14:27 | RAD_ITS ---
STUDY: X-RAY - PELVIS AND LEFT HIP REASON FOR EXAM: Male, 76 years old. Post Op -- AP both hips on single mg/lateral of op hip PACU TECHNIQUE: 2 views of the pelvis and hip. COMPARISON: Comparison is made with prior examination dated 05/01/2022. FINDINGS: There is a non-specific bowel gas pattern. Postoperative soft tissue changes. The patient is status post left total hip replacement. There is good alignment. Degenerative changes of the right hip joint. RAD/Hip Min 2 Views (Portable) IMPRESSION: Status post left total hip replacement. There is good alignment. Postoperative soft tissue changes. Electronically Signed: Quentin Grimaldo MD at 14:54 EST ,
[2022-08-13 15:21] LABS: Bedside Glucose 129 mg/dL (74-106)
--- NOTE | 2022-08-13 15:28 | EKG12_ITS ---
Test Reason : VIVIANA Blood Pressure : / mmHG Vent. Rate : 048 BPM Atrial Rate : 048 BPM P-R Int : 176 ms QRS Dur : 098 ms QT Int : 518 ms P-R-T Axes : 006 010 046 degrees QTc Int : 462 ms Sinus bradycardia Otherwise normal ECG No previous ECGs available Confirmed by BALJIT ADHIKARI, JAN ([id number]), editorial specialist ALPHONSO GONSALVES ([id number]) on 08/19/2022 12:50:21 PM Referred By: Anthony Hoover Confirmed By:JAN SMILEY MD
[2022-08-13] MEDS: 0.9% Normal Saline 1,000 ML 125 ML IV (18:10)
[2022-08-13] MEDS: Cefazolin 1 GM/50 ML BAG IV (18:18)
[2022-08-13] MEDS: oxyCODONE 5 MG Tablet PO (19:51)
[2022-08-13] MEDS: Senna/Docusate Sodium 1 Tablet 2 TABLET PO (21:41)
[2022-08-13] MEDS: Pravastatin 20 MG Tablet PO (21:41)
[2022-08-13] MEDS: metFORMIN HCl 500 MG Tablet PO (21:46)
[2022-08-13] MEDS: Ketorolac 15 MG/ML Vial IV (21:46)
[2022-08-13] MEDS: Gabapentin 600 MG Tablet PO (22:58)
[2022-08-14] MEDS: Cefazolin 1 GM/50 ML BAG IV ×2 (01:18→10:25)
[2022-08-14 04:00] VITALS: BP 126/59; PULSE 82; RESP 16; TEMP 36.9; O2SAT 95
[2022-08-14 04:56] LABS: Hematocrit 37.9 % (40-54); Hemoglobin 13.1 g/dL (13.0-16.5); Mean Corp Hgb Conc 34.6 g/dL (32-36); Mean Corpuscular Volume 86.7 fL (80-94); Mean Platelet Vol. 11.2 fl (6.2-12.0); Platelet Count 143 K/mm3 (150-450); RBC Distribution Width CV 12.7 % (11.6-14.6); RBC Distribution Width SD 40.3 fl (35.1-43.9); Red Blood Count 4.37 M/mm3 (4.6-6.2); White Blood Count 7.8 K/mm3 (4.4-11.0)
[2022-08-14 05:19] LABS: Anion Gap 7 (5-15); BUN 14 mg/dL (7-18); Calcium,Total 8.5 mg/dL (8.5-10.1); Chloride 108 mmol/L (98-107); EST Glomerular Filtration Rate 77 mL/min (>60); Est Glom Filt Rate - Afr Amer 93 mL/min (>60); Estimated Creatinine Clearance 63.88 ml/min; Glucose 139 mg/dL (74-106); Sodium Level 141 mmol/L (136-145)
[2022-08-14] MEDS: APIXABAN 2.5 MG TABLET (WCH) PO ×2 (06:00→22:09)
[2022-08-14] MEDS: Acetaminophen 500 MG Tablet 1000 MG PO ×3 (06:00→22:10)
[2022-08-14] MEDS: Gabapentin 600 MG Tablet PO ×3 (06:00→22:18)
--- NOTE | 2022-08-14 07:50 | PCM.PN.ORT ---
Subjective Subjective Patient seen and examined. Does not complain of any pain fevers chills nausea vomiting shortness of breath or chest pain however patient is acutely delirious he is not aware of his location or time. He is rambling. Objective Data Objective Data Vital Signs: Vital Signs Temp Pulse Resp BP Pulse Ox O2 Del Method O2 Flow Rate 98.4 F 82 16 126/59 H 95 Room Air 4 08/14/22 04:00 08/14/22 04:00 08/14/22 04:00 08/14/22 04:00 08/14/22 04:00 08/14/22 04:00 08/13/22 16:00 Oxygen Flow Rate (L/min) 4 Oxygen Delivery Method Room Air Weight: 171 lb 4.787 oz Body Mass Index (BMI) 24.5 Intake & Output: Intake and Output for Last 24 Hours 08/12/22 08/13/22 08/14/22 23:59 23:59 23:59 Intake Total 5171.59 / 5171.59 1183.33 / 1183.33 Output Total 100 / 100 1450 / 1450 Balance 5071.59 / 5071.59 -266.67 / -266.67 Lab / Micro Data Result Diagrams: 08/14/22 04:24 08/14/22 04:24 Labs: Laboratory Results - last 24 hr 08/13/22 09:44: POC Glucose 122 H 08/13/22 14:59: POC Glucose 129 H 08/14/22 04:24: WBC 7.8, RBC 4.37 L, Hgb 13.1, Hct 37.9 L, MCV 86.7, MCH 30.0, MCHC 34.6, RDW Std Deviation 40.3, RDW Coeff of Tresa 12.7, Plt Count 143 L, MPV 11.2 08/14/22 04:24: Sodium 141, Potassium 4.0, Chloride 108 H, Carbon Dioxide 26.0, Anion Gap 7, BUN 14, Creatinine 1.00, Estim Creat Clear Calc 63.88, Est GFR (MDRD) Af Amer 93, Est GFR (MDRD) Non-Af 77, BUN/Creatinine Ratio 14.0, Glucose 139 H, Calcium 8.5 Radiography Diagnostic Testing: Radiology Impression Hip X-Ray 08/13/22 14:27 IMPRESSION: Status post left total hip replacement. There is good alignment. Postoperative soft tissue changes. Electronically Signed: Quentin Grimaldo MD at 14:54 EST , Physical Exam Const no apparent distress; Negative for alert or oriented x3 Orientation / Consciousness: confused; Negative for lethargic Extremity Extremity Narrative: Left hip dressing is dry however he is picking at the outside of the dressing his compartments are soft he is neurovascular intact EHL tibialis anterior gastrocsoleus intact sensation light touch palpable pedal pulses Assessment & Plan Assessment/Plan (1) S/P total hip arthroplasty: (2) Acute delirium: PLAN: Plan Postop day #1 left total hip arthroplasty vital signs and postop labs stable postop x-ray reviewed PT OT weightbearing as tolerated with hip precautions DVT prophylaxis Eliquis 2.5 mg twice daily SCDs ELIAZAR hose His dressing that he has been picking at needs to be reinforced I did discuss this with nursing apply large Tegaderms or equivalent over top Acute postoperative delirium did consult hospitalist. He will likely need to be converted to admission .
--- NOTE | 2022-08-14 08:54 | NURSING ---
scopolamine patch removed at this time from behind left ear.
[2022-08-14 09:48] VITALS: BP 103/62; PULSE 82; RESP 18; TEMP 37.4; O2SAT 94
[2022-08-14 10:00] LABS: AST(SGOT) 40 U/L (15-37); Alanine Aminotransfer ALT/SGPT 23 U/L (16-61); Albumin, Serum 3.1 g/dL (3.2-5.0); Alkaline Phosphatase 69 U/L (45-117); Bilirubin, Direct 0.13 mg/dL (0.00-0.30); Globulin 2.9 g/dL (2.2-4.2)
[2022-08-14] MEDS: Cholecalciferol (Vit D3) 125 MCG CAPSULE (5,000 UNITS) PO (10:19)
[2022-08-14] MEDS: metFORMIN HCl 500 MG Tablet PO ×2 (10:19→17:34)
[2022-08-14] MEDS: Pantoprazole Sodium 20 MG Tablet PO (10:20)
[2022-08-14] MEDS: Senna/Docusate Sodium 1 Tablet 2 TABLET PO (10:20)
[2022-08-14] MEDS: 0.9% Saline Lock 10 ML Syringe IV (10:26)
[2022-08-14 11:35] LABS: Base Excess -1 mmol/L (-2 to +2); Bicarbonate 23.5 mmol/L (22-26); Blood Gas Specimen Type ART; O2 Delivery Device Room Air; PO2 70 mmHG (75-100); SITE L Brach; SO2 94 % (95-99); Total Carbon Dioxide 25 mmol/L; pCO2 37.3 mmHg (35-45); pH 7.41 (7.35-7.45)
--- NOTE | 2022-08-14 11:36 | MRI_ITS ---
STUDY: MRI BRAIN WITHOUT CONTRAST REASON FOR EXAM: Male, 76 years old. Confusion- post op hip replacement TECHNIQUE: Standardized multiplanar fat and water weighted pulse sequences were obtained. COMPARISON: No relevant prior imaging available for comparison. HEMISPHERES, CEREBELLUM AND BRAINSTEM: 1. The cerebral parenchyma, ventricular system, subarachnoid spaces have normal configuration. There is a normal gyral pattern. There is normal cox/white differentiation. No midline shift.. 2. The hemispheric white matter has normal appearance. 3. No intraparenchymal mass, hemorrhage, or acute territorial infarct. 4. The cerebellum, brainstem, basilar and suprasellar cisterns have normal appearance. No Chiari malformation. PITUITARY: Infundibulum and pituitary have normal configuration. Midline structures appear normal. CSF SPACES: Appropriate for age. No hydrocephalus. Basal cisterns are patent. VESSELS: 1. There are normal flow voids noted in the great vessels at the skull base ORBITS AND PARANASAL SINUSES: 1. Both globes, extraocular muscles, optic nerves and retrobulbar fat appear unremarkable. 2. Paranasal sinuses are clear. BONY ELEMENTS: Bony elements of the cranial vault, facial skeleton and skull base have normal appearance. SCALP AND SOFT TISSUES: Normal appearance of the soft tissues of the scalp and the visualized face OTHER: None MRI/Brain without Contrast IMPRESSION: 1. No intracranial mass, hemorrhage, or acute territorial infarct. Electronically Signed: Georges Kirk MD at 16:30 EST ,
[2022-08-14 13:56] VITALS: BP 125/70; PULSE 84; RESP 18; TEMP 36.8; O2SAT 98
--- NOTE | 2022-08-14 14:38 | PN.HOSP_ITS ---
Reason for Visit Reason for Visit: Diagnoses Disorientation, unspecified (08/13/22) Other abnormal glucose (08/13/22) Encounter for other preprocedural examination (08/13/22) Presence of unspecified artificial hip joint (08/13/22) Subjective Subjective Mr. Sanford is a 76-year-old white male who was admitted to [facility] for an elective total hip arthroplasty on 08/13/2022. He evidently had longstanding arthrosis of the hip and failed outpatient conservative management and desired undergoing a total hip arthroplasty. Operative versus nonoperative management were discussed as an outpatient he wished to proceed. He was admit angelica and the procedure was done on the afternoon of 08/13/2022 with spinal anesthesia. Evidently the procedure went without any difficulty. Anesthesia notes were reviewed and he was given Versed, glycopyrrolate, propofol, paralytics, phenylephrine, Zofran during the procedure in addition to spinal an esthesia it appears his hemodynamics were stable throughout the procedure and there were operative issues. This morning he was noted to be quite delirious and confused and we have been consulted for postoperative delirium. He is very pleasant and alert but significantly confused. He denies any alcohol intake at baseline and we have confirmed this with his .. He does not appear to be aware that he has any baseline confusion. Objective Data Objective Data Vital Signs: Vital Signs Temp Pulse Resp BP Pulse Ox O2 Del Method O2 Flow Rate 99.3 F H 82 18 103/62 94 Room Air 4 08/14/22 09:48 08/14/22 09:48 08/14/22 09:48 08/14/22 09:48 08/14/22 09:48 08/14/22 09:48 08/13/22 16:00 Oxygen Flow Rate (L/min) 4 Oxygen Delivery Method Room Air Weight: 77.7 kg Body Mass Index (BMI) 24.5 Intake & Output: Intake and Output for Last 24 Hours 08/12/22 08/13/22 08/14/22 23:59 23:59 23:59 Intake Total 5171.59 / 5171.59 1233.33 / 1233.33 Output Total 100 / 100 1450 / 1450 Balance 5071.59 / 5071.59 -216.67 / -216.67 Lab / Micro Data Result Diagrams: 08/14/22 04:24 08/14/22 04:24 Labs: Laboratory Results - last 24 hr 08/13/22 14:59: POC Glucose 129 H 08/14/22 04:24: WBC 7.8, RBC 4.37 L, Hgb 13.1, Hct 37.9 L, MCV 86.7, MCH 30.0, MCHC 34.6, RDW Std Deviation 40.3, RDW Coeff of Tresa 12.7, Plt Count 143 L, MPV 11.2 08/14/22 04:24: Sodium 141, Potassium 4.0, Chloride 108 H, Carbon Dioxide 26.0, Anion Gap 7, BUN 14, Creatinine 1.00, Estim Creat Clear Calc 63.88, Est GFR (MDRD) Af Amer 93, Est GFR (MDRD) Non-Af 77, BUN/Creatinine Ratio 14.0, Glucose 139 H, Calcium 8.5 08/14/22 04:24: Total Bilirubin 0.70, Direct Bilirubin 0.13, AST 40 H, ALT 23, Alkaline Phosphatase 69, Total Protein 6.0 L, Albumin 3.1 L, Globulin 2.9 08/14/22 09:32: Ammonia 14.0 ABG Data ABG results: ABG 08/14/22 11:01 Specimen Type ART Sample Site L Brach pH 7.41 Bicarbonate Actual 23.5 Total CO2 25 Base Excess -1 O2 Saturation 94 L ABG pCO2 37.3 ABG pO2 70 L O2 Delivery Device Room Air Radiography Diagnostic Testing: Radiology Impression Hip X-Ray 08/13/22 14:27 IMPRESSION: Status post left total hip replacement. There is good alignment. Postoperative soft tissue changes. Electronically Signed: Quentin Grimaldo MD at 14:54 EST , Physical Exam Const alert, no apparent distress, average body habitus, healthy appearing and well nourished Constitutional Narrative: Very pleasant elderly white man sitting up in the chair at the bedside putting toothpaste on his cover for his breakfast plate, oriented only to self, speech is understandable but patient is significantly confused HEENT head/scalp atraumatic and moist oral mucous membranes HEENT Narrative: Mallampati 2, no thrush Head and Scalp: normocephalic Eyes PERRL, EOMs intact bilaterally and conjunctivae normal Eyes Narrative: No scleral icterus Resp normal respiratory effort, no retractions, no use of accessory muscles and clear to auscultation bilaterally Auscultation: Negative for rales, rhonchi or wheezes Cardio regular rate, regular rhythm, S1 normal heart sound, S2 normal heart sound, no murmurs, no rub, no gallops and no clicks GI normal to inspection, nondistended, normoactive bowel sounds, soft to palpation and non-tender Extremity no clubbing, cyanosis or edema Extremity Narrative: 2+ pedal pulses Skin Skin Narrative: Left hip with postop dressing-clean and dry Neuro CN's II-XII intact bilaterally, moves all extremities, no focal motor deficits and no sensory deficits noted Neuro Narrative: Oriented only to self Speech: speech normal Psych Psych Narrative: Thought processes are significantly tangential Assessment & Plan Assessment/Plan (1) MINO (acute kidney injury): (2) S/P total hip arthroplasty: (3) Osteoarthritis of left hip: PLAN: Plan Left hip osteoarthritis status post MANFRED -Postop day 1 -Patient is not having significant pain and with his delirium we will discontinue as needed oxycodone -Discontinue scopolamine patch -Continue Tylenol -Continue Toradol -Apixaban for DVT prophylaxis per primary service -PT/OT Acute toxic/metabolic encephalopathy -Patient denies any alcohol use at baseline and this was confirmed with his -Intraoperative medications reviewed and he did get medications that could cause delirium -Ammonia level normal -ABG unremarkable -CBC/CMP unremarkable -MRI of the brain negative for any acute findings -I highly suspect this is toxic related to intraoperative medications -Limit mind altering meds -Continue to monitor clinically -Gabapentin can cause confusion however this is a chronic medication for him with a stable dosing and normal renal failure so I doubt this is the etiology at this time -Check a.m. B12 level Vitamin D deficiency -Continue cholecalciferol DM-2 -Continue home metformin GERD -Continue home PPI by Neuropathy -Continue home gabapentin Hyperlipidemia -Continue simvastatin DVT prophylaxis -Apixaban 2.5 mg twice daily per orthopedic surgery Charges/Coding Visit Charges Inpatient E&M: 87195 Subs Hosp L2
--- NOTE | 2022-08-14 16:08 | CASEMGMT ---
DISCHARGE PLANNING ASSESSMENT SW to room to meet with patient for initial transition planning/care coordination assessment. SW introduced self and role at [facility]. Pt voices understanding and consents to assessment at this time. Pt resting in bed in no distress at this time. Pt is able to answer most questions appropriately but saying some unusual things. Pt Elza in room and assisting with answering questions when pt cannot. Care providers, pharmacy, and demographics verified/updated at this time. PCP: Katina Specialists: Maryanne Holcomb Pharmacy: [facility] [place] Insurance: [employer] Prescription Benefit: Yes Living Will/HPOA: Pt confirms he has a living will and health care POA naming his Elza Sanford. Pt and made aware documents are not on file and SW requested they be brougt in for scanning into medical record. LNOK: Elza Sanford, Living Arrangements: Pt lives in a one story home with his . 3 steps in from garage and 2 steps in from front porch. Prior to elective surgery, pt was Independent with all care needs. Pt did not use an assistive device for ambulation. Transportation: Pt does drive but will not be able to post surgical procedure. Pt confirms she is able to provide needed transportation. DME: Pt has the following DME: Walker, cane, high rise toilet, shower chair HHC/SNF: No previous home health or SNF Pt wishes to return home and he and state no concerns with going home at time of discharge. Pt has appointment scheduled with [facility] in [place] for Friday. Pt and believe the outpatient clinic has needed orders. Pt voices no further concerns/needs at this time. PLAN: Home with . Follow up with out patient PT at [facility] in [place]. EVITA Joiner
--- NOTE | 2022-08-14 16:21 | CASEMGMT ---
Social work Pt confirms he has a living will and health care POA naming his Elza Sanford. Pt and made aware documents are not on file and SW requested they be brougt in for scanning into medical record. EVITA Ponce
--- NOTE | 2022-08-14 17:01 | CASEMGMT ---
KIRIT RICE NOTE: RN CM to room. Therapy @ bedside, working w/pt. Intro role of CM to , who is at bedside, and HILLMAN form explained re: Observation status for treatment of left total hip arthroplasty.? Explained hospitalization will be paid per pt's insurance policy for Outpatient billing?and condition will continue to be evaluated for Inpt necessity. Also let know that [facility] sends paper in the billing packet with their phone number if questions arise. verbalizes understanding and does not have further questions. ?Form signed, copy made and placed in chart, and original given to . Gabbie YANGN KIRIT CM
--- NOTE | 2022-08-14 17:10 | CASEMGMT ---
KIRIT RICE NOTE: Call placed to [facility] in [place] ([phone]) to verify if OP therapy is scheduled on Friday. They are closed for the day. Gabbie MAN RN, CM
[2022-08-14 19:02] LABS: Vitamin B12 588 pg/mL (211-911)
[2022-08-14] MEDS: Pravastatin 20 MG Tablet PO (22:10)
[2022-08-14] MEDS: MELATONIN 3 MG TABLET PO (22:18)
[2022-08-14 22:23] VITALS: BP 134/75; PULSE 90; RESP 16; TEMP 36.8; O2SAT 98
[2022-08-15 04:26] LABS: Hematocrit 36.2 % (40-54); Hemoglobin 12.4 g/dL (13.0-16.5); Mean Corp Hgb Conc 34.3 g/dL (32-36); Mean Corpuscular Hgb 29.8 pg (27.0-32.0); Mean Platelet Vol. 11.9 fl (6.2-12.0); Platelet Count 147 K/mm3 (150-450); RBC Distribution Width CV 12.9 % (11.6-14.6); RBC Distribution Width SD 41.1 fl (35.1-43.9); Red Blood Count 4.16 M/mm3 (4.6-6.2); White Blood Count 9.2 K/mm3 (4.4-11.0)
[2022-08-15] MEDS: Acetaminophen 500 MG Tablet 1000 MG PO ×2 (05:22→14:33)
[2022-08-15] MEDS: Gabapentin 600 MG Tablet PO ×2 (05:22→14:33)
[2022-08-15 05:24] VITALS: BP 137/73; PULSE 79; RESP 16; TEMP 36.6; O2SAT 95
[2022-08-15 07:36] VITALS: BP 127/72; PULSE 77; RESP 16; TEMP 36.7; O2SAT 97
[2022-08-15] MEDS: metFORMIN HCl 500 MG Tablet PO (07:45)
--- NOTE | 2022-08-15 08:11 | PCM.PN.ORT ---
Subjective Subjective Patient seen and examined. Patient is lucid he is no confusion today. Denies any fever chills nausea vomit shortness of breath or chest pain has passed gas and urine Objective Data Objective Data Vital Signs: Vital Signs Temp Pulse Resp BP Pulse Ox O2 Del Method O2 Flow Rate 98.0 F 77 16 127/72 H 97 Room Air 4 08/15/22 07:36 08/15/22 07:36 08/15/22 07:36 08/15/22 07:36 08/15/22 07:36 08/15/22 07:36 08/13/22 16:00 Oxygen Flow Rate (L/min) 4 Oxygen Delivery Method Room Air Weight: 171 lb 4.787 oz Body Mass Index (BMI) 24.5 Intake & Output: Intake and Output for Last 24 Hours 08/13/22 08/14/22 08/15/22 23:59 23:59 23:59 Intake Total 5171.59 / 5171.59 1233.33 / 1233.33 Output Total 100 / 100 1450 / 1450 Balance 5071.59 / 5071.59 -216.67 / -216.67 Lab / Micro Data Result Diagrams: 08/15/22 03:44 08/14/22 04:24 Labs: Laboratory Results - last 24 hr 08/14/22 04:24: Total Bilirubin 0.70, Direct Bilirubin 0.13, AST 40 H, ALT 23, Alkaline Phosphatase 69, Total Protein 6.0 L, Albumin 3.1 L, Globulin 2.9 08/14/22 09:32: Ammonia 14.0 08/14/22 09:37: Vitamin B12 588 08/15/22 03:44: WBC 9.2, RBC 4.16 L, Hgb 12.4 L, Hct 36.2 L, MCV 87.0, MCH 29.8, MCHC 34.3, RDW Std Deviation 41.1, RDW Coeff of Tresa 12.9, Plt Count 147 L, MPV 11.9 ABG Data ABG results: ABG 08/14/22 11:01 Specimen Type ART Sample Site L Brach pH 7.41 Bicarbonate Actual 23.5 Total CO2 25 Base Excess -1 O2 Saturation 94 L ABG pCO2 37.3 ABG pO2 70 L O2 Delivery Device Room Air Radiography Diagnostic Testing: Radiology Impression Brain MRI 08/14/22 11:36 IMPRESSION: 1. No intracranial mass, hemorrhage, or acute territorial infarct. Electronically Signed: Georges Kirk MD at 16:30 EST , Physical Exam Const alert, oriented x3 and no apparent distress Extremity Extremity Narrative: Left hip dressing clean dry intact compartment soft neurovascular intact Assessment & Plan Assessment/Plan (1) S/P total hip arthroplasty: (2) Acute delirium: PLAN: Plan Postop day #2 left total hip arthroplasty Delirium has resolved patient stable for discharge Appreciate hospitalist evaluation. Ambulating well with physical therapy. Pain controlled. Follow-up in the office 2 weeks
--- NOTE | 2022-08-15 08:12 | DCINST_ITS ---
Discharge Instructions Diet Discharge Diet: No restrictions (High sugar diet increases risk of infection; minimize sweets and carbs) Dressing / Incision Additional Dressing/Incision Instructions:: Do not shower 72hrs. Begin daily showering warm water antibacterial soap postop day #3( 72hrs Post-operatively) and then daily. Leave the dressing on for 72 hours postoperatively then may remove prior to first shower and change dressing daily after this until no drainage for 2 consecutive days then may leave open to air. Follow hip precautions that were reviewed in hospital. Wear compression stockings, may remove at night. Start physical therapy as directed in hospital. Follow prescriptions instructions do not take any other pain medication or differ dosing without consulting your physician. Do not take oral NSAIDs until blood thinner has been completed , then may begin the day after completion if needed . Call Dr. Hoover's office with any concerns. Follow Up Care Please Follow Up With: Anthony Hoover DO Test Results: Test results from this visit will be discussed in further detail at your follow- up appointment, if applicable. Discharge Plan Admission Admit Date/Time: 08/13/22 14:05 Primary Reason for Your Visit: Left total hip arthroplasty Attending Provider: Anthony Hoover Primary Care Provider: Allyson Ambriz Consulting Providers: Tonya Burgess Discharge Orders/Prescriptions Prescriptions: New acetaminophen [acetaminophen] 500 mg tablet 1,000 mg PO Q6H PRN Qty: 100 0RF Eliquis 2.5 mg tablet 2.5 mg PO BID Qty: 42 0RF oxycodone 5 mg tablet 5 - 10 mg PO Q4H PRN (Reason: pain) 7 Days Qty: 60 0RF Continued Prilosec 10 mg susp,delayed release for recon 20 mg PO DAILY Ocuvite Adult 50 Plus 250-5-1 mg capsule 1 cap PO DAILY zinc gluconate 30 mg tablet 30 mg PO DAILY cholecalciferol (vitamin D3) 125 mcg (5,000 unit) capsule 125 mcg PO DAILY coenzyme Q10 100 MG capsule 100 mg PO DAILY pravastatin 20 mg tablet 20 mg PO DAILY Qty: 90 3RF metformin 500 mg tablet 500 mg PO BID Qty: 60 3RF gabapentin 600 mg tablet 600 mg PO TID Qty: 270 3RF Referrals / Follow Up: Allyson Ambriz MD [Primary Care Provider] -
--- NOTE | 2022-08-15 10:14 | PN.HOSP_ITS ---
Reason for Visit Reason for Visit: Diagnoses Other acute postprocedural pain (08/13/22) Unilateral primary osteoarthritis, left hip (08/13/22) Acute kidney failure, unspecified (08/13/22) Disorientation, unspecified (08/13/22) Other abnormal glucose (08/13/22) Encounter for other preprocedural examination (08/13/22) Presence of unspecified artificial hip joint (08/13/22) Subjective Subjective Effusion has resolved. Patient is not alert and oriented x3. Ambulated with assistance 5 times around before yesterday and is doing well. Plans for discharge home later today. Objective Data Objective Data Vital Signs: Vital Signs Temp Pulse Resp BP Pulse Ox O2 Del Method O2 Flow Rate 98.0 F 77 16 127/72 H 97 Room Air 4 08/15/22 07:36 08/15/22 07:36 08/15/22 07:36 08/15/22 07:36 08/15/22 07:36 08/15/22 07:36 08/13/22 16:00 Oxygen Flow Rate (L/min) 4 Oxygen Delivery Method Room Air Weight: 77.7 kg Body Mass Index (BMI) 24.5 Intake & Output: Intake and Output for Last 24 Hours 08/13/22 08/14/22 08/15/22 23:59 23:59 23:59 Intake Total 5171.59 / 5171.59 1233.33 / 1233.33 Output Total 100 / 100 1450 / 1450 Balance 5071.59 / 5071.59 -216.67 / -216.67 Lab / Micro Data Result Diagrams: 08/15/22 03:44 08/14/22 04:24 Labs: Laboratory Results - last 24 hr 08/14/22 09:37: Vitamin B12 588 08/15/22 03:44: WBC 9.2, RBC 4.16 L, Hgb 12.4 L, Hct 36.2 L, MCV 87.0, MCH 29.8, MCHC 34.3, RDW Std Deviation 41.1, RDW Coeff of Tresa 12.9, Plt Count 147 L, MPV 11.9 ABG Data ABG results: ABG 08/14/22 11:01 Specimen Type ART Sample Site L Brach pH 7.41 Bicarbonate Actual 23.5 Total CO2 25 Base Excess -1 O2 Saturation 94 L ABG pCO2 37.3 ABG pO2 70 L O2 Delivery Device Room Air Radiography Diagnostic Testing: Radiology Impression Brain MRI 08/14/22 11:36 IMPRESSION: 1. No intracranial mass, hemorrhage, or acute territorial infarct. Electronically Signed: Georges Kirk MD at 16:30 EST Reading Location ID and State: [facility] / [place] Tel , Service support , Physical Exam Const alert, oriented x3, no apparent distress, average body habitus, healthy appearing and well nourished Constitutional Narrative: Very pleasant elderly white man sitting up in bed, alert and orient x3, very pleasant, nontoxic, watching television Extremity no clubbing, cyanosis or edema Extremity Narrative: 2+ pedal pulses, left hip with clean dry and intact dressing, no significant tenderness at incision site, area soft Assessment & Plan Assessment/Plan (1) MINO (acute kidney injury): (2) S/P total hip arthroplasty: (3) Osteoarthritis of left hip: PLAN: Plan Left hip osteoarthritis status post MANFRED -Postop day 2 -Pain management per primary service -Apixaban for DVT prophylaxis per primary service -PT/OT following Acute toxic/metabolic encephalopathy -Resolved -Work-up was negative -Suspect medication related Vitamin D deficiency -Continue cholecalciferol DM-2 -Continue home metformin GERD -Continue home PPI by Neuropathy -Continue home gabapentin Hyperlipidemia -Continue simvastatin DVT prophylaxis -Apixaban 2.5 mg twice daily per orthopedic surgery Disposition: -Mental status has resolved and is back at baseline. Suspect confusion was related to intraoperative medications or postoperative pain medications. Organic work-up was unremarkable. Okay for discharge home from a medical standpoint Charges/Coding Visit Charges Inpatient E&M: 82172 Subs Hosp L1
--- NOTE | 2022-08-15 10:45 | CASEMGMT ---
KIRIT RICE Follow-up: Call placed to [place] [facility] therapy services to confirm pt has a therapy appointment scheduled for Friday, 08/16 at 1000. Face to Face with pt who confirms he is aware of this appointment and plans to attend. Pt denies any additional discharge needs at this time. Pt states his will be coming up after lunch for discharge. No additional needs identified. John Celis RN CM
[2022-08-15] MEDS: Senna/Docusate Sodium 1 Tablet 2 TABLET PO (11:41)
[2022-08-15] MEDS: Pantoprazole Sodium 20 MG Tablet PO (11:41)
[2022-08-15] MEDS: APIXABAN 2.5 MG TABLET (WCH) PO (11:41)
[2022-08-15] MEDS: Cholecalciferol (Vit D3) 125 MCG CAPSULE (5,000 UNITS) PO (11:42)
[2022-08-15 14:27] VITALS: BP 142/72; PULSE 83; RESP 16; TEMP 37.1; O2SAT 98
== END 2022-08-15 14:55 | disposition home or self-care (01) ==
LOC: SDC 17:13 → MS3 17:13
PROVIDERS: Anesthesiology; Internal Medicine; Admitting Provider Orthopaedic Surgery; PCP Internal Medicine; Referring Provider Orthopaedic Surgery; Visit Provider Orthopaedic Surgery
PROC: 8E0Y0CZ Robotic Assisted Procedure of Lower Extremity, Open Approach (ICD-10-PCS; CPT 27130; principal; 2022-08-13 10:45)
DX: M16.12 Unilateral primary osteoarthritis, left hip (principal); N17.9 Acute kidney failure, unspecified; E11.40 Type 2 diabetes mellitus with diabetic neuropathy, unspecified; E78.00 Pure hypercholesterolemia, unspecified; Z79.899 Other long term (current) drug therapy; K21.9 Gastro-esophageal reflux disease without esophagitis; Z79.84 Long term (current) use of oral hypoglycemic drugs; G92.8 Other toxic encephalopathy; E55.9 Vitamin D deficiency, unspecified; R00.1 Bradycardia, unspecified
CPT/HCPCS: 27130; 01214; S2900; 36415; 36600; 70551; 73502; 80048; 80076; 82140; 82607; 82803; 82962; 82985; 83036; 83735; 85027; 85610; 85730; 86850; 86900; 86901; 88305; 88311; 93005; 94668; 96361; 96365; 96366; 96375; 97110; 97116; 97162; 97166; 97530; 97535; 99221; 99252; C1776; J7030; J7120; A4216; G0378; G0463; J2405; J3475

== ENCOUNTER → 2022-09-18 | Outpatient (CLI) | payer MEDICARE, SELFPAY ==
[2022-09-18 12:33] LABS: Absolute Lymphocyte Count 1.56 X10^3/uL (0.83-4.51); Absolute Neutrophil Count 3.4 X10^3/uL (2.0-7.7); Basophil# 0.06 X10^3/uL; Eosinophil# 0.18 X10^3/uL; Hematocrit 48.7 % (40-54); Hemoglobin 15.7 g/dL (13.0-16.5); Lymphocyte # 1.56 X10^3/ul (0.83-4.51); Lymphocyte % 26.3 % (19-41); Mean Corp Hgb Conc 32.2 g/dL (32-36); Mean Corpuscular Hgb 29.1 pg (27.0-32.0); Mean Corpuscular Volume 90.4 fL (80-94); Mean Platelet Vol. 12.2 fl (6.2-12.0); Monocyte# 0.67 X10^3/uL; Monocyte% 11.3 % (0-10); NRBC Flagged by Analyzer 0 % (0-5); Neutrophil # 3.44 X10^3/uL (2.7-7.7); Neutrophil % 58.1 % (47-70); Platelet Count 192 K/mm3 (150-450); RBC Distribution Width CV 13.1 % (11.6-14.6); RBC Distribution Width SD 43.2 fl (35.1-43.9); Red Blood Count 5.39 M/mm3 (4.6-6.2); White Blood Count 5.9 K/mm3 (4.4-11.0)
[2022-09-18 13:01] LABS: Vitamin B12 680 pg/mL (211-911); Vitamin D,25 Hydroxy 101.6 ng/mL
[2022-09-18 13:12] LABS: AST(SGOT) 28 U/L (15-37); Alanine Aminotransfer ALT/SGPT 32 U/L (16-61); Alkaline Phosphatase 146 U/L (45-117); Anion Gap 9 (5-15); BUN 21 mg/dL (7-18); BUN/Creat Ratio 23.6 RATIO (10-20); Calcium,Total 9.6 mg/dL (8.5-10.1); Chloride 101 mmol/L (98-107); Cholesterol 194 mg/dL (200); Creatinine, Serum 0.89 mg/dL (0.70-1.30); EST Glomerular Filtration Rate 88 mL/min (>60); Est Glom Filt Rate - Afr Amer 106 mL/min (>60); Globulin 4.1 g/dL (2.2-4.2); Glucose 114 mg/dL (74-106); High Density Lipoprotein 49 mg/dL; PSA,Total - Annual Screen 3.71 ng/mL (0.00-4.00); Potassium 4.2 mmol/L (3.5-5.1); Protein, Total 8.1 g/dL (6.4-8.2); Sodium Level 138 mmol/L (136-145); Triglycerides 308 mg/dL; Very Low Density Lipoprotein 62 mg/dL (5-40)
[2022-09-18 13:25] LABS: Hemoglobin A1c 5.9 % (3.8-5.6)
== END | disposition home or self-care (01) ==
LOC: LAB 10:41
PROVIDERS: PCP Internal Medicine; Referring Provider Internal Medicine; Visit Provider Internal Medicine
DX: M25.559 Pain in unspecified hip (principal); R73.9 Hyperglycemia, unspecified; E78.00 Pure hypercholesterolemia, unspecified; M54.50 Low back pain, unspecified; K21.9 Gastro-esophageal reflux disease without esophagitis; G89.29 Other chronic pain; N52.9 Male erectile dysfunction, unspecified; Z13.220 Encounter for screening for lipoid disorders; Z12.5 Encounter for screening for malignant neoplasm of prostate; E53.8 Deficiency of other specified B group vitamins; E55.9 Vitamin D deficiency, unspecified
CPT/HCPCS: 36415; 80053; 80061; 82306; 82607; 83036; 84153; 85025; G0103

== ENCOUNTER → 2022-11-27 | Outpatient (CLI) | payer MEDICARE, SELFPAY ==
--- NOTE | 2022-11-27 07:45 | MRI_ITS ---
PROCEDURE: LUMBAR SPINE MRI WITHOUT CONTRAST COMPARISONS: 09/23/2022 CLINICAL INDICATION: Chronic low back pain, bilateral foot pain and numbness, history of instrumented fusion TECHNIQUE: Noncontrast lumbosacral spine MRI study was performed multiple sequences in sagittal and axial planes. FINDINGS: Dextroscoliosis centered on L3. Susceptibility artifact from L4-L5-S1 posterior instrumented fusion. L3-S1 laminectomies. Grade 1 L5-S1 anterolisthesis. Mild L2-3 and L3-4 retrolisthesis. Normal vertebral marrow signal. Normal partially visualized sacroiliac joints. The conus medullaris terminates at the level of T12-L1. No abnormal signal within the visualized cord. L1-L2: Right paracentral disc protrusion. Bilateral facet hypertrophy.. Normal spinal canal and neuroforamina. L2-L3: Disc bulge and bilateral facet hypertrophy crowds the traversing L3 nerve roots in the lateral recesses. Mild right and severe left neural foraminal stenosis. L3-L4: Disc bulge and facet hypertrophy impinge on the traversing L4 nerve roots in both lateral recesses. Severe bilateral neural foraminal stenosis. L4-L5: Mild disc bulge and facet hypertrophy. Normal spinal canal and neuroforamina. L5-S1: Disc uncovering. At least mild bilateral neural foraminal stenosis.. Paraspinous muscle fatty infiltration. Lower paraspinous muscle edema. MRI/Spine Lumbar (Routine) IMPRESSION: 1. Severe neural foraminal stenosis on the left at L2-3, and bilaterally at L3-4. 2. Impingement on the traversing L4 nerve roots in both lateral recesses at L3-4. 3. Other degenerative change detailed above. Electronically Signed: Georges Kirk MD at 23:31 EDT ,
== END | disposition home or self-care (01) ==
LOC: MRI 07:32
PROVIDERS: PCP Internal Medicine; Referring Provider Orthopaedic Surgery; Visit Provider Orthopaedic Surgery
DX: M47.816 Spondylosis without myelopathy or radiculopathy, lumbar region (principal); R27.0 Ataxia, unspecified
CPT/HCPCS: 72148

== ENCOUNTER → 2023-03-24 | Outpatient (CLI) | payer MEDICARE, SELFPAY ==
[2023-03-24 12:34] LABS: Absolute Lymphocyte Count 1.74 X10^3/uL (0.83-4.51); Absolute Neutrophil Count 3.6 X10^3/uL (2.0-7.7); Basophil# 0.07 X10^3/uL; Basophil% 1.1 % (0-1); Eosinophil# 0.17 X10^3/uL; Eosinophils% 2.7 % (0-5); Hematocrit 47.1 % (40-54); Lymphocyte # 1.74 X10^3/ul (0.83-4.51); Lymphocyte % 28.1 % (19-41); Mean Corpuscular Hgb 30.2 pg (27.0-32.0); Mean Platelet Vol. 11.8 fl (6.2-12.0); Monocyte# 0.59 X10^3/uL; Monocyte% 9.5 % (0-10); NRBC Flagged by Analyzer 0 % (0-5); Neutrophil # 3.61 X10^3/uL (2.7-7.7); Neutrophil % 58.3 % (47-70); Platelet Count 182 K/mm3 (150-450); RBC Distribution Width CV 13.2 % (11.6-14.6); RBC Distribution Width SD 42.8 fl (35.1-43.9); Red Blood Count 5.29 M/mm3 (4.6-6.2); White Blood Count 6.2 K/mm3 (4.4-11.0)
[2023-03-24 12:59] LABS: Vitamin D,25 Hydroxy 118.3 ng/mL
[2023-03-24 13:14] LABS: ALB/GLOB Ratio 1.1 RATIO (0.9-2.4); AST(SGOT) 25 U/L (15-37); Alanine Aminotransfer ALT/SGPT 33 U/L (16-61); Albumin, Serum 4.1 g/dL (3.2-5.0); Alkaline Phosphatase 105 U/L (45-117); Anion Gap 8 (5-15); BUN 18 mg/dL (7-18); BUN/Creat Ratio 19.1 RATIO (10-20); Calcium,Total 9.3 mg/dL (8.5-10.1); Chloride 102 mmol/L (98-107); Cholesterol 186 mg/dL (200); Creatinine, Serum 0.94 mg/dL (0.70-1.30); EST Glomerular Filtration Rate 82 mL/min (>60); Est Glom Filt Rate - Afr Amer 99 mL/min (>60); Globulin 3.7 g/dL (2.2-4.2); Glucose 133 mg/dL (74-106); High Density Lipoprotein 53 mg/dL; Potassium 4.1 mmol/L (3.5-5.1); Protein, Total 7.8 g/dL (6.4-8.2); Sodium Level 138 mmol/L (136-145); Triglycerides 188 mg/dL; Very Low Density Lipoprotein 38 mg/dL (5-40)
== END | disposition home or self-care (01) ==
LOC: LAB 11:05
PROVIDERS: PCP Internal Medicine; Referring Provider Internal Medicine; Visit Provider Internal Medicine
DX: M25.50 Pain in unspecified joint (principal); E78.00 Pure hypercholesterolemia, unspecified; K21.9 Gastro-esophageal reflux disease without esophagitis; N52.9 Male erectile dysfunction, unspecified; E55.9 Vitamin D deficiency, unspecified; Z96.649 Presence of unspecified artificial hip joint
CPT/HCPCS: 36415; 80053; 80061; 82306; 84443; 85025

== ENCOUNTER → 2023-04-02 | Outpatient (CLI) | payer MEDICARE, SELFPAY ==
[2023-04-02 11:32] LABS: Hemoglobin A1c 6.2 % (3.8-5.6)
== END | disposition home or self-care (01) ==
LOC: LAB 09:13
PROVIDERS: PCP Internal Medicine; Referring Provider Internal Medicine; Visit Provider Internal Medicine
DX: R73.9 Hyperglycemia, unspecified (principal)
CPT/HCPCS: 36415; 83036

== ENCOUNTER → 2023-05-22 | Outpatient (CLI) | payer MEDICARE, SELFPAY | END | disposition home or self-care (01) | LOC: LABSPEC 14:48 | PROVIDERS: PCP Internal Medicine; Visit Provider Otolaryngology | DX: J32.9 Chronic sinusitis, unspecified (principal) | CPT/HCPCS: 87070; 87077; 87205 ==

== ENCOUNTER → 2023-07-03 | Outpatient (CLI) | payer MEDICARE, SELFPAY ==
--- OUTSIDE RECORDS SUMMARY | 2023-07-03 17:17 | XMS RPT_ITS | CCD ---
Author Name Unknown Address [address] [place] [address] Organization [facility] Care Team Providers Care Computer Operator Name Role Phone VIET HALL Admitting Unavailable DAVID TALAVERA Referring Unavailable DAVID TALAVERA Consulting Unavailable VIET HALL Attending Unavailable VIET HALL Primary Care Unavailable PROVIDER, UNKNOWN Consulting Unavailable Allergies Allergy Classification Reported Allergen(s) Allergy Type Date of Onset Reaction(s) Facility (1 source) Doxycycline Drug Allergy [facility] Repository Results Test Name Value Interpretation Reference Range Facil ity Encounters Encounter Date Encounter Type Care Provider Facility Start: 06-30-2023 End: 06-30-2023 Emergency department patient visit VIET HALL [facility] Payers Date Payer Category Payer Unknown [id number] Medicare [id number] Summary Purpose Family History No Family History Records FoundNo Family History Records FoundNo Family History Records FoundNo Family History Records Found Advance Directives No Advanced Directives Records FoundNo Advanced Directives Records FoundNo Advanced Directives Records FoundNo Advanced Directives Records Found Additional Source Comments (unrecognized sect ion and content) No Status Records FoundNo Status Records FoundNo Status Records FoundNo Status Records Found INFORMATION SOURCE (unrecogn ized section and content) DATE CREATED AUTHOR AUTHOR'S ORGANIZ ATION 12/09/2019 [facility] DATE CREATED AUTHOR AUTHOR'S ORGANIZ ATION 05/17/2020 [facility] ([place]) DATE CREATED AUTHOR AUTHOR'S ORGANIZ ATION 07/02/2023 [facility] FOR RECORDS PERTAINING TO PATIENTS WHO ARE OR HAVE BEEN ENROLLED IN A CHEMICAL DEPENDENCY/SUBSTANCEABUSE PROGRAM, SOME INFORMATION MAY BE OMITTED. This clinical summary was aggregated from multiple sources. Caution should be exercised in using it in the provision of clinical care. This summary normalizes information from multiple sources, and as a consequence, information in this document may materially change the coding, format and clinical context of patient data. In addition, data may be omitted in some cases. CLINICAL DECISIONS SHOULD BE BASED ON THE PRIMARY CLINICAL RECORDS. [facility]. provides no warranty or guarantee of the accuracy or completeness of information in this document.
== END | disposition home or self-care (01) ==
PROVIDERS: PCP Internal Medicine; Visit Provider Otolaryngology
DX: J32.9 Chronic sinusitis, unspecified (principal)
CPT/HCPCS: 87070; 87077; 87186; 87205

== ENCOUNTER → 2023-08-04 | Outpatient (CLI) | payer MEDICARE, SELFPAY ==
--- NOTE | 2023-08-04 09:55 | RAD_ITS ---
STUDY: X-RAY - LUMBAR SPINE REASON FOR EXAM: Male, 77 years old. FALL TECHNIQUE: 3 view(s) of the lumbar spine were obtained. COMPARISON: September 23, 2022 lumbar spine x-ray FINDINGS: Normal lumbar lordosis. There is no substantial scoliosis. There is slight anterolisthesis at the level of L5-S1. There is a spinal fusion L4-S1 with bilateral pedicle screws. On the right side there are pedicle screws at the level of L5 and S1. There has been a laminectomy. There is visualized dextroscoliosis. There is atherosclerotic disease of the visualized aorta. There is partial visualization of a left hip arthroplasty. There is multilevel disc space narrowing spondylosis stable since prior study. There is mild to moderate constipation. RAD/Lumbar Spine 2 or 3 Views IMPRESSION: L4-S1 spinal fusion and laminectomy. Stable since prior study. Multilevel degenerative change. Partial visualization of a left hip arthroplasty. Electronically Signed: Fabienne Calixto MD at 0:00 EST Reading Location ID and State: [facility] / [place] Tel , Service support ,
--- OUTSIDE RECORDS SUMMARY | 2023-08-04 10:18 | XMS RPT_ITS | CCD ---
Author Name Unknown Address [address] [place] [address] Organization [facility] Care Team Providers Care Vertical Lathe Operator Name Role Phone VIET HALL Admitting [...] Hospital Payers Date Payer Category Payer Unknown [id number] Medicare [id number] Summary Purpose Family History No Family History [...] DATE CREATED AUTHOR AUTHOR'S ORGANIZ ATION 12/09/2019 [facility] DATE CREATED AUTHOR AUTHOR'S ORGANIZ ATION 05/17/2020 [facility] ([place]) DATE CREATED AUTHOR AUTHOR'S ORGANIZ ATION 07/06/2023 [facility] FOR RECORDS PERTAINING TO PATIENTS WHO [...] BE BASED ON THE PRIMARY CLINICAL RECORDS. [facility]. provides no warranty or guarantee of the accuracy or completeness of information in this document.
== END | disposition home or self-care (01) ==
PROVIDERS: PCP Internal Medicine; Referring Provider Anesthesiology Pain Medicine; Visit Provider Anesthesiology Pain Medicine
DX: M51.36 Other intervertebral disc degeneration, lumbar region (principal); Z91.81 History of falling
CPT/HCPCS: 72100

== ENCOUNTER → 2023-10-07 | Outpatient (CLI) | payer MEDICARE, SELFPAY ==
[2023-10-07 11:16] LABS: Absolute Lymphocyte Count 1.88 X10^3/uL (0.83-4.51); Absolute Neutrophil Count 3.2 X10^3/uL (2.0-7.7); Basophil# 0.07 X10^3/uL; Basophil% 1.2 % (0-1); Eosinophil# 0.13 X10^3/uL; Eosinophils% 2.2 % (0-5); Hematocrit 46.6 % (40-54); Hemoglobin 15.9 g/dL (13.0-16.5); Lymphocyte # 1.88 X10^3/ul (0.83-4.51); Lymphocyte % 31.5 % (19-41); Mean Corp Hgb Conc 34.1 g/dL (32-36); Mean Corpuscular Hgb 28.9 pg (27.0-32.0); Mean Corpuscular Volume 84.6 fL (80-94); Mean Platelet Vol. 11.5 fl (6.2-12.0); Monocyte# 0.66 X10^3/uL; Monocyte% 11.1 % (0-10); NRBC Flagged by Analyzer 0 % (0-5); Neutrophil # 3.21 X10^3/uL (2.7-7.7); Neutrophil % 53.8 % (47-70); Platelet Count 180 K/mm3 (150-450); RBC Distribution Width CV 13.2 % (11.6-14.6); RBC Distribution Width SD 40.5 fl (35.1-43.9); Red Blood Count 5.51 M/mm3 (4.6-6.2)
[2023-10-07 11:49] LABS: Vitamin D,25 Hydroxy 99.7 ng/mL
[2023-10-07 11:51] LABS: ALB/GLOB Ratio 1.1 RATIO (0.9-2.4); AST(SGOT) 26 U/L (15-37); Alanine Aminotransfer ALT/SGPT 30 U/L (16-61); Albumin, Serum 3.9 g/dL (3.2-5.0); Alkaline Phosphatase 98 U/L (45-117); Anion Gap 4 (5-15); BUN 19 mg/dL (7-18); BUN/Creat Ratio 18.1 RATIO (10-20); Chloride 104 mmol/L (98-107); Cholesterol 195 mg/dL (200); Creatinine, Serum 1.05 mg/dL (0.70-1.30); EST Glomerular Filtration Rate 72 mL/min (>60); Est Glom Filt Rate - Afr Amer 88 mL/min (>60); Globulin 3.7 g/dL (2.2-4.2); Glucose 141 mg/dL (74-106); High Density Lipoprotein 53 mg/dL; PSA,Total - Annual Screen 3.09 ng/mL (0.00-4.00); Potassium 4.6 mmol/L (3.5-5.1); Protein, Total 7.6 g/dL (6.4-8.2); Sodium Level 137 mmol/L (136-145); Thyroid Stim Hormone (TSH) 2.31 uIU/mL (0.358-3.74); Triglycerides 187 mg/dL; Very Low Density Lipoprotein 37 mg/dL (5-40)
[2023-10-07 12:29] LABS: Hemoglobin A1c 6.9 % (3.8-5.6)
== END | disposition home or self-care (01) ==
LOC: LAB 10:56
PROVIDERS: PCP Internal Medicine; Referring Provider Internal Medicine; Visit Provider Internal Medicine
DX: Z12.5 Encounter for screening for malignant neoplasm of prostate (principal); N52.9 Male erectile dysfunction, unspecified; E78.00 Pure hypercholesterolemia, unspecified; E55.9 Vitamin D deficiency, unspecified; N17.9 Acute kidney failure, unspecified; M25.551 Pain in right hip; Z13.220 Encounter for screening for lipoid disorders; R73.9 Hyperglycemia, unspecified
CPT/HCPCS: 36415; 80053; 80061; 82306; 83036; 84153; 84443; 85025; G0103

== ENCOUNTER → 2024-03-12 | Outpatient (CLI) | payer MEDICARE, SELFPAY ==
--- NOTE | 2024-03-12 14:13 | CT_ITS ---
STUDY: CT MAXILLOFACIAL SINUSES REASON FOR EXAM: Male, 78 years old. Other chronic sinusitis RADIATION DOSAGE (If Supplied By Facility): CTDIvol = ( 33.06 ) mGy, DLP = ( 788.40 ) mGycm TECHNIQUE: The patient was scanned in a multi detector CT scanner. High resolution axial imaging was performed without the administration of intravenous contrast material. Sagittal and coronal images were reconstructed. Individualized dose optimization techniques were used for this CT. COMPARISON: None. FINDINGS: FRONTAL SINUSES: Normal aeration, without mucosal inflammatory disease. ETHMOIDAL SINUSES: Normal aeration, without mucosal inflammatory disease. MAXILLARY SINUSES: Normal aeration, without mucosal inflammatory disease. SPHENOIDAL SINUSES: Normal aeration, without mucosal inflammatory disease. There is patency of the bilateral maxillary infundibuli with normal uncinate processes, ethmoid bullae, and hiatus semilunaris. Normal bilateral middle turbinates. Normal bilateral inferior turbinates. There is a left sided nasal septal deviation, but without a nasal septal spur. There is patency of the bilateral nasal airways. The visualized osseous structures are normal. The visualized bilateral orbital contents are normal. CT/Sinus/Facial Bone IMPRESSION: Normal CT examination of the maxillofacial sinuses. Electronically Signed: Quentin Grimaldo MD at 11:23 EDT ,
== END | disposition home or self-care (01) ==
LOC: CT 14:12
PROVIDERS: PCP Internal Medicine; Referring Provider Otolaryngology; Visit Provider Otolaryngology
DX: J32.9 Chronic sinusitis, unspecified (principal)
CPT/HCPCS: 70486

== ENCOUNTER → 2024-04-12 | Outpatient (CLI) | payer MEDICARE, SELFPAY ==
[2024-04-12 12:38] LABS: ALB/GLOB Ratio 1.2 RATIO (0.9-2.4); AST(SGOT) 23 U/L (15-37); Alanine Aminotransfer ALT/SGPT 27 U/L (16-61); Albumin, Serum 4.3 g/dL (3.2-5.0); Alkaline Phosphatase 102 U/L (45-117); Anion Gap 6 (5-15); BUN 20 mg/dL (7-18); BUN/Creat Ratio 18.5 RATIO (10-20); Calcium,Total 10.1 mg/dL (8.5-10.1); Chloride 102 mmol/L (98-107); Creatinine, Serum 1.08 mg/dL (0.70-1.30); EST Glomerular Filtration Rate 70 mL/min (>60); Est Glom Filt Rate - Afr Amer 85 mL/min (>60); Globulin 3.7 g/dL (2.2-4.2); Glucose 153 mg/dL (74-106); Potassium 4.8 mmol/L (3.5-5.1); Sodium Level 137 mmol/L (136-145)
[2024-04-12 13:21] LABS: Hemoglobin A1c 6.4 % (3.8-5.6)
== END | disposition home or self-care (01) ==
LOC: BIMLAB 10:11
PROVIDERS: PCP Internal Medicine; Referring Provider Internal Medicine; Visit Provider Internal Medicine
DX: R73.9 Hyperglycemia, unspecified (principal); K21.9 Gastro-esophageal reflux disease without esophagitis; G62.9 Polyneuropathy, unspecified; M16.12 Unilateral primary osteoarthritis, left hip
CPT/HCPCS: 36415; 80053; 83036

== ENCOUNTER → 2024-10-11 | Outpatient (CLI) | payer MEDICARE, SELFPAY ==
[2024-10-11 13:08] LABS: Absolute Lymphocyte Count 1.75 X10^3/uL (0.83-4.51); Absolute Neutrophil Count 4.1 X10^3/uL (2.0-7.7); Basophil# 0.06 X10^3/uL; Basophil% 0.9 % (0-1); Eosinophil# 0.12 X10^3/uL; Eosinophils% 1.8 % (0-5); Hematocrit 46.4 % (40-54); Lymphocyte # 1.75 X10^3/ul (0.83-4.51); Lymphocyte % 25.9 % (19-41); Mean Corp Hgb Conc 34.5 g/dL (32-36); Mean Corpuscular Hgb 29.8 pg (27.0-32.0); Mean Corpuscular Volume 86.4 fL (80-94); Mean Platelet Vol. 11.1 fl (6.2-12.0); Monocyte# 0.67 X10^3/uL; Monocyte% 9.9 % (0-10); NRBC Flagged by Analyzer 0 % (0-5); Neutrophil # 4.13 X10^3/uL (2.7-7.7); Neutrophil % 61.1 % (47-70); Platelet Count 265 K/mm3 (150-450); RBC Distribution Width CV 12.7 % (11.6-14.6); RBC Distribution Width SD 39.8 fl (35.1-43.9); Red Blood Count 5.37 M/mm3 (4.6-6.2); White Blood Count 6.8 K/mm3 (4.4-11.0)
[2024-10-11 13:37] LABS: Hemoglobin A1c 7.2 % (<=5.6)
[2024-10-11 13:59] LABS: ALB/GLOB Ratio 1.1 RATIO (0.9-2.4); AST(SGOT) 28 U/L (<=37); Alanine Aminotransfer ALT/SGPT 23 U/L (<=46); Albumin, Serum 4.1 g/dL (3.4-4.8); Alkaline Phosphatase 114 U/L (40-129); Anion Gap 11 (5-15); BUN 16 mg/dL (4-19); BUN/Creat Ratio 15.4 RATIO (10-20); Calcium,Total 9.8 mg/dL (7.6-11.0); Carbon Dioxide 25.8 mmol/L (21.0-32.0); Chloride 101 mmol/L (98-108); Cholesterol 221 mg/dL (<=200); Creatinine, Serum 1.03 mg/dL (0.70-1.20); EST Glomerular Filtration Rate 73 (>60); Globulin 3.8 g/dL (2.2-4.2); Glucose 147 mg/dL (70-99); High Density Lipoprotein 48 mg/dL; Low Density Lipoprotein Calc. 142 mg/dL; PSA,Total - Annual Screen 4.84 ng/mL (0.02-4.00); Protein, Total 7.9 g/dL (5.9-8.4); Sodium Level 138 mmol/L (133-145); Total Bilirubin 0.53 mg/dL (0.00-1.30); Triglycerides 157 mg/dL; Very Low Density Lipoprotein 31 mg/dL (5-40); Vitamin B12 888 pg/mL (180-914); cholesterol:hdl ratio screen 4.62
== END | disposition home or self-care (01) ==
LOC: BIMLAB 10:57
PROVIDERS: PCP Internal Medicine; Referring Provider Internal Medicine; Visit Provider Internal Medicine
DX: E78.00 Pure hypercholesterolemia, unspecified (principal); E11.40 Type 2 diabetes mellitus with diabetic neuropathy, unspecified; Z13.220 Encounter for screening for lipoid disorders; Z98.1 Arthrodesis status; E55.9 Vitamin D deficiency, unspecified; M54.50 Low back pain, unspecified; G89.29 Other chronic pain; Z12.5 Encounter for screening for malignant neoplasm of prostate
CPT/HCPCS: 36415; 80053; 80061; 82306; 82607; 83036; 84153; 84443; 85025; G0103

== ENCOUNTER → 2025-01-12 | Outpatient (CLI) | payer MEDICARE, SELFPAY ==
[2025-01-12 13:36] LABS: PSA,Total- Diagnostic 2.97 ng/mL (0.00-4.00)
== END | disposition home or self-care (01) ==
LOC: BIMLAB 08:35
PROVIDERS: PCP Internal Medicine; Referring Provider Internal Medicine; Visit Provider Internal Medicine
DX: R73.9 Hyperglycemia, unspecified (principal); N40.0 Benign prostatic hyperplasia without lower urinary tract symptoms
CPT/HCPCS: 36415; 83036; 84153

== ENCOUNTER → 2025-04-07 | Outpatient (CLI) | payer MEDICARE, SELFPAY ==
[2025-04-07 17:41] LABS: Hematocrit 44.5 % (40-54); Hemoglobin 15.4 g/dL (13.0-16.5); Immature Granulocytes Count 0.020 X10^3/uL (0.0-0.0); Mean Corp Hgb Conc 34.6 g/dL (32-36); Mean Corpuscular Volume 85.9 fL (80-94); Mean Platelet Vol. 12.2 fl (6.2-12.0); NRBC Flagged by Analyzer 0 % (0-5); Platelet Count 183 K/mm3 (150-450); RBC Distribution Width CV 13.1 % (11.6-14.6); RBC Distribution Width SD 40.9 fl (35.1-43.9); Red Blood Count 5.18 M/mm3 (4.6-6.2); White Blood Count 6.7 K/mm3 (4.4-11.0)
[2025-04-07 18:19] LABS: AST(SGOT) 44 U/L (<=37); Alanine Aminotransfer ALT/SGPT 48 U/L (<=46); Albumin, Serum 4.3 g/dL (3.4-4.8); Alkaline Phosphatase 100 U/L (40-129); Anion Gap 13 (5-15); BUN 18 mg/dL (4-19); BUN/Creat Ratio 17.0 RATIO (10-20); Calcium,Total 9.5 mg/dL (7.6-11.0); Carbon Dioxide 23.0 mmol/L (21.0-32.0); Chloride 102 mmol/L (98-108); Cholesterol 200 mg/dL (<=200); Globulin 3.1 g/dL (2.2-4.2); Glucose 157 mg/dL (70-99); Low Density Lipoprotein Calc. 110 mg/dL; Magnesium 2.1 mg/dL (1.5-2.2); Potassium 4.1 mmol/L (3.3-5.1); Triglycerides 145 mg/dL; Very Low Density Lipoprotein 29 mg/dL (5-40); cholesterol:hdl ratio screen 3.29
[2025-04-07 18:47] LABS: Vitamin D,25 Hydroxy 122.0 ng/mL (30-100)
== END | disposition home or self-care (01) ==
PROVIDERS: PCP Internal Medicine; Referring Provider Internal Medicine; Visit Provider Internal Medicine
DX: E11.40 Type 2 diabetes mellitus with diabetic neuropathy, unspecified (principal); E11.65 Type 2 diabetes mellitus with hyperglycemia; E78.00 Pure hypercholesterolemia, unspecified; M19.90 Unspecified osteoarthritis, unspecified site; Z13.220 Encounter for screening for lipoid disorders; E55.9 Vitamin D deficiency, unspecified
CPT/HCPCS: 36415; 80053; 80061; 82306; 83036; 83735; 84443; 85025